=== PATIENT | male | born 1955 | race Caucasian/White ===

== ENCOUNTER 2017-02-23 14:47 | Inpatient (IN) | payer OTHER ==
[2017-02-23] MEDS ORDERED: RX INFO: IV CONTRAST WAS GIVEN 1 EACH MISC MISCELLANE PRN (15:05)
[2017-02-23] MEDS ORDERED: DEXTROSE 50%-WATER 50 ML SYRINGE IVP STA ×2 (15:05→16:04)
[2017-02-23] MEDS ORDERED: DEXTROSE 5%-0.45% NACL 1,000 ML IV ONE (15:06)
[2017-02-23 15:08] LABS: Glucose,Whole Blood 25 mg/dL (75-99)
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
[2017-02-23 15:56] LABS: Basophils % (A) 0 %; CH 33.7; CHCM 32.4; Eosinophils # (A) 0.3 k/uL (0-0.7); Eosinophils % (A) 3 %; HCT 38.6 % (39.0-53.0); HDW 1.98; HGB 12.6 gm/dL (13.0-17.5); Luc # (Auto) 0.21; Luc % (Auto) 2; Lymphocytes # (A) 1.2 k/uL (1.0-4.8); Lymphocytes % (A) 11 %; MCH 34.2 pg (25.0-35.0); MCHC 32.7 g/dL (31.0-37.0); MCV 104.5 fL (80.0-100.0); Macrocytosis Slight; Mean Platelet Volume 7.2; Monocytes # (A) 1.2 k/uL (0-1.0); Monocytes % (A) 11 %; Neutrophils % (A) 74 %; RBC 3.69 m/uL (4.30-5.90); RDW 12.7 % (11.5-15.5); WBC 10.9 k/uL (3.8-10.6); WBC (Perox) 11.12
[2017-02-23 16:06] LABS: Glucose,Whole Blood 33 mg/dL (75-99)
[2017-02-23 16:07] LABS: ALT 40 U/L (21-72); AST 83 U/L (17-59); Alcohol 33 mg/dL; Alkaline Phosphatase 44 U/L (38-126); Anion Gap 12 mmol/L; Blood Urea Nitrogen 16 mg/dL (9-20); Calcium 9.3 mg/dL (8.4-10.2); Carbon Dioxide 23 mmol/L (22-30); Chloride 109 mmol/L (98-107); Glucose 80 mg/dL (74-99); Non-African American GFR(MDRD) >60 (>60 ml/min/1.73 sqM); Potassium 4.1 mmol/L (3.5-5.1); Sodium 144 mmol/L (137-145); Total Bilirubin 0.4 mg/dL (0.2-1.3); Total Protein 7.1 g/dL (6.3-8.2)
[2017-02-23 16:08] LABS: INR 1.2 (<1.1)
--- NOTE | 2017-02-23 16:08 | XR ---
EXAMINATION TYPE: XR pelvis AP view DATE OF EXAM ORDERED: 02/23/2017 HISTORY: Pain. COMPARISON: None. FINDINGS: Osseous structures about the pelvis are normal. No fracture is seen. The hips are maintain ed. There are degenerative changes in the lower lumbar spine. IMPRESSION: NO ACUTE OSSEOUS LESION.
--- NOTE | 2017-02-23 16:09 | XR ---
EXAMINATION TYPE: XR chest 1V DATE OF EXAM: 02/23/2017 HISTORY: Pain. REFERENCE: NONE. FINDINGS: The lungs are clear. Pleural space are clear. Heart size is upper limits of normal. IMPRESSION: NO ACUTE INTRATHORACIC ABNORMALITY.
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
[2017-02-23 17:15] LABS: Glucose,Whole Blood 72 mg/dL (75-99)
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
[2017-02-23] MEDS ORDERED: ONDANSETRON 4 MG/2 ML VIAL IVP PRN (17:32)
[2017-02-23] MEDS ORDERED: HYDROcodone/APAP 5-325MG 1 EACH TAB PO PRN (17:32)
[2017-02-23] MEDS ORDERED: NALOXONE 0.4 MG/ML 1 ML VIAL IV PRN (17:32)
[2017-02-23 19:54] LABS: Glucose,Whole Blood 115 mg/dL (75-99)
[2017-02-23 20:13] LABS: Glucose,Whole Blood 173 mg/dL (75-99)
[2017-02-23 20:31] VITALS: BMI 21.7
[2017-02-23] MEDS ORDERED: LORazepam 2 MG/ML SYRINGE IV PRN ×3 (21:29)
[2017-02-23] MEDS ORDERED: THIAMINE 100 MG/ML 2 ML VIAL IM STA (21:29)
[2017-02-23] MEDS: INSULIN LISPRO (humaLOG) 300 UNIT/3 ML VIAL SQ SCH (22:11)
[2017-02-23 22:18] LABS: Glucose,Whole Blood 315 mg/dL (75-99)
[2017-02-23] MEDS: ACETAMINOPHEN TAB 325 MG TAB PO PRN (22:22)
[2017-02-23 23:08] LABS: Hemoglobin A1C 8.1 % (4.2-6.1)
[2017-02-24 01:40] LABS: Glucose,Whole Blood 181 mg/dL (75-99)
[2017-02-24] MEDS: ACETAMINOPHEN TAB 325 MG TAB PO PRN ×3 (04:26→20:07)
[2017-02-24 08:13] LABS: Glucose,Whole Blood 182 mg/dL (75-99)
[2017-02-24] MEDS: INSULIN LISPRO (humaLOG) 300 UNIT/3 ML VIAL SQ SCH ×3 (08:22→18:30)
[2017-02-24 10:47] LABS: Glucose,Whole Blood 399 mg/dL (75-99)
[2017-02-24 11:30] LABS: Glucose,Whole Blood 390 mg/dL (75-99)
[2017-02-24] MEDS ORDERED: INSULIN GLARGINE 100 UNIT/ML 10 ML VIAL SQ ONE (11:46)
[2017-02-24] MEDS: THIAMINE 100 MG TAB PO SCH ×2 (11:49→16:40)
[2017-02-24 12:09] LABS: Glucose,Whole Blood 413 mg/dL (75-99)
[2017-02-24] MEDS ORDERED: INSULIN LISPRO (humaLOG) 300 UNIT/3 ML VIAL SQ ONE (12:15)
[2017-02-24] MEDS: VALSARTAN 80 MG TAB PO SCH (16:40)
[2017-02-24 17:49] LABS: Glucose,Whole Blood 337 mg/dL (75-99)
[2017-02-24] MEDS ORDERED: INSULIN REGULAR 100 UNIT/ML VIAL IV ONE (18:15)
[2017-02-24 18:44] LABS: Glucose,Whole Blood 320 mg/dL (75-99)
[2017-02-24 19:30] LABS: Glucose,Whole Blood 310 mg/dL (75-99)
[2017-02-24 19:56] LABS: Glucose,Whole Blood 228 mg/dL (75-99)
[2017-02-24] MEDS ORDERED: LATANOPROST 0.005% OPHTH DROPS 2.5 ML BTL BOTH EYES SCH (21:00)
[2017-02-24 21:55] LABS: Glucose,Whole Blood 112 mg/dL (75-99)
[2017-02-25 00:14] LABS: Glucose,Whole Blood 117 mg/dL (75-99)
[2017-02-25 02:05] LABS: Glucose,Whole Blood 100 mg/dL (75-99)
[2017-02-25] MEDS: ACETAMINOPHEN TAB 325 MG TAB PO PRN ×2 (04:24→11:14)
[2017-02-25 06:02] LABS: Glucose,Whole Blood 110 mg/dL (75-99)
[2017-02-25] MEDS: INSULIN LISPRO (humaLOG) 300 UNIT/3 ML VIAL SQ SCH ×2 (06:26→12:30)
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
[2017-02-25] MEDS: VALSARTAN 80 MG TAB PO SCH (08:57)
[2017-02-25] MEDS ORDERED: INSULIN GLARGINE 100 UNIT/ML 10 ML VIAL SQ SCH (09:00)
[2017-02-25] MEDS: THIAMINE 100 MG TAB PO SCH (11:14)
[2017-02-25 11:55] LABS: Glucose,Whole Blood 334 mg/dL (75-99)
[2017-02-25] MEDS ORDERED: KETOROLAC 30 MG/ML 1 ML VIAL IVP STA (14:32)
[2017-02-25 15:31] VITALS: RESP 18
[2017-02-25 15:33] VITALS: BP 149/87; PULSE 92; TEMP 98.3
[2017-02-25 16:51] LABS: Glucose,Whole Blood 217 mg/dL (75-99)
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
== END 2017-02-25 16:51 | disposition home or self-care (01) | DRG 639 ==
LOC: EC 14:47 → 6ICU 18:54 → 6SEL 02-24 19:52
PROVIDERS: ADMIT Internal Medicine; ATTEND Internal Medicine
DX: E11.649 Type 2 diabetes mellitus with hypoglycemia without coma (principal); I10 Essential (primary) hypertension; E11.65 Type 2 diabetes mellitus with hyperglycemia; F10.129 Alcohol abuse with intoxication, unspecified; F17.200 Nicotine dependence, unspecified, uncomplicated; S61.213A Laceration without foreign body of left middle finger without damage to nail, initial encounter; M54.2 Cervicalgia; Y90.1 Blood alcohol level of 20-39 mg/100 ml; Z79.4 Long term (current) use of insulin; Z79.84 Long term (current) use of oral hypoglycemic drugs; Z79.899 Other long term (current) drug therapy; V49.9XXA Car occupant (driver) (passenger) injured in unspecified traffic accident, initial encounter
CPT/HCPCS: 36415; 70450; 71010; 71260; 72125; 72170; 74177; 80053; 80306; 80320; 82607; 83036; 84484; 85025; 85610; 85730; 93005; 96360; 96361; 99285

== ENCOUNTER → 2018-03-16 | Outpatient (CLI) | payer BC, OTHER ==
--- NOTE | 2018-03-16 13:53 | XR ---
EXAMINATION TYPE: XR cervical spine limited DATE OF EXAM: 03/16/2018 CLINICAL HISTORY: pain TECHNIQUE: 3 views of the cervical spine are submitted. COMPARISON: None. FINDINGS: There is satisfactory in alignment without evidence of acute fracture or dislocation. The pre-vertebral soft tissue appears within normal limits. Moderate degenerative disc space narrowing a nd spondylosis at C5-6. Mild degenerative narrowing at C6-7. The C1-C2 articulation is unremarkable o n the open mouth view. IMPRESSION: No acute fracture or dislocation is seen in the cervical spine.
== END | disposition home or self-care (01) ==
LOC: RADXRMAIN 12:58
PROVIDERS: ATTEND Family Medicine
DX: M50.30 Other cervical disc degeneration, unspecified cervical region (principal)
CPT/HCPCS: 72040

== ENCOUNTER 2020-07-03 12:54 | Inpatient (IN) | payer OTHER ==
[2020-07-03] MEDS ORDERED: VANCOMYCIN IV PER PHARMACY 1 EACH MISC MISCELLANE PRN (13:17)
[2020-07-03] MEDS ORDERED: PIPERACILLIN-TAZOBACTAM 3.375 GM in SODIUM CHLORIDE 0.9% 100 ML IVPB STA (13:17)
[2020-07-03] MEDS ORDERED: ACETAMINOPHEN TAB 325 MG TAB PO STA (13:18)
[2020-07-03] MEDS ORDERED: VANCOMYCIN 1,250 MG in SODIUM CHLORIDE 0.9% 250 ML IVPB ONE (13:30)
--- NOTE | 2020-07-03 13:45 | XR ---
EXAMINATION TYPE: XR ankle limited RT DATE OF EXAM: 07/03/2020 COMPARISON: NONE HISTORY: Pain TECHNIQUE: Frontal, lateral images of the right ankle are obtained. COMPARISON: None. FINDINGS: There is no acute fracture/dislocation evident. The joint spaces appear within normal anaya its. Soft tissue swelling noted about the ankle greatest laterally. IMPRESSION: There is no acute fracture or dislocation seen.
--- NOTE | 2020-07-03 13:46 | XR ---
EXAMINATION TYPE: XR foot complete RT DATE OF EXAM: 07/03/2020 CLINICAL HISTORY: pain TECHNIQUE: Frontal, lateral and oblique images of the right foot are obtained. COMPARISON: None. FINDINGS: There is no acute fracture/dislocation evident. The joint spaces appear within normal anaya its. Soft tissue swelling about the first metatarsal phalangeal joint with internal air. Air producin g infection is not excluded. Vascular calcifications are noted as well. No evidence for bony destruct neisha process at this time. IMPRESSION: Soft tissue swelling about the first metatarsal phalangeal joint with internal air. Air producing inf ection is not excluded. ICD 10 NO FRACTURE, INITIAL EVALUATION
--- NOTE | 2020-07-03 14:01 | ED ---
General Adult HPI - General Chief complaint: Extremity Injury, Lower Stated complaint: Sent by PCP Time Seen by Provider: 07/03/20 13:03 Source: patient, RN notes reviewed Mode of arrival: ambulatory Limitations: no limitations - History of Present Illness Initial comments: 65-year-old male presents emergency Department chief complaint of right foot inf ection. Patient states that this started in the last 1-2 days. Patient states he injured his ankle when she fell he twisted it. Patient states that he woke up and noticed that there is an open sore and blistering to his foot. Patient does have a history infections. Patient has a known diabetic. Patient states that he was evaluated by Dr. Sesay podiatry today who sent him here for further evaluation for IV antibiotics. Patient denies knowing that he had a fever though he is febrile. Patient denies any abdominal pain no proximal leg pain. - Related Data Home Medications Medication Instructions Recorded Confirmed INSULIN LISPRO (humaLOG) [humaLOG] 8 units SQ AC-TID 02/23/17 07/03/20 Latanoprost [Xalatan 0.005%] 1 drop BOTH EYES HS 02/23/17 07/03/20 Valsartan [Diovan] 80 mg PO DAILY 02/23/17 07/03/20 Acetaminophen Tab [Tylenol Tab] 1,000 mg PO Q6HR PRN 07/03/20 07/03/20 Famotidine/Ca Carb/Mag Hydrox 1 tab PO DAILY 07/03/20 07/03/20 [Pepcid Complete Tablet Chew] Gabapentin [Neurontin] 100 mg PO BID 07/03/20 07/03/20 Insulin Glargine,Hum.rec.anlog 12 unit SQ DAILY 07/03/20 07/03/20 [Basaglar Kwikpen U-100] metFORMIN HCL [Glucophage] 500 mg PO BID 07/03/20 07/03/20 Allergies Allergy/AdvReac Type Severity Reaction Status Date / Time No Known Allergies Allergy Verified 07/03/20 14:01 Review of Systems ROS Statement: Those systems with pertinent positive or pertinent negative responses have been documented in the HPI. ROS Other: All systems not noted in ROS Statement are negative. Past Medical History Past Medical History: Diabetes Mellitus, Hypertension History of Any Multi-Drug Resistant Organisms: MRSA Date of last positivie culture/infection: 05/03/20 MDRO Source:: Right 2nd finger Past Surgical History: No Surgical Hx Reported Past Psychological History: No Psychological Hx Reported Smoking Status: Current every day smoker Past Alcohol Use History: Daily Past Drug Use History: None Reported - Past Family History Mother Additional Family Medical History / Comment(s): Parkinsons Disease Father Family Medical History: Cancer Additional Family Medical History / Comment(s): Lung Cancer General Exam Limitations: no limitations General appearance: alert, in no apparent distress Head exam: Present: atraumatic, normocephalic, normal inspection Eye exam: Present: normal appearance, PERRL, EOMI. Absent: scleral icterus, conjunctival injection, periorbital swelling ENT exam: Present: normal exam, normal oropharynx, mucous membranes moist Respiratory exam: Present: normal lung sounds bilaterally. Absent: respiratory distress, wheezes, rales, rhonchi, stridor Cardiovascular Exam: Present: normal rhythm, tachycardia, normal heart sounds. Absent: systolic murmur, diastolic murmur, rubs, gallop, clicks Extremities exam: Present: other (Right foot there is extensive erythema just proximal to the ankle, there is an open wound on the ball his foot proximal to the first and second digit with blistering noted moderate tenderness) Skin exam: Present: warm, dry, intact, normal color. Absent: rash Course Vital Signs 07/03/20 07/03/20 12:59 14:45 Temperature 99.8 F H 98.2 F Pulse Rate 114 H 82 Respiratory 18 18 Rate Blood Pressure 91/61 98/61 O2 Sat by Pulse 99 100 Oximetry Medical Decision Making - Medical Decision Making 65-year-old male presented for right foot infection. Patient has obvious open diabetic ulcer, x-ray shows ulcer with some air or gas. Patient does have moderate leukocytosis, lactic acidosis. Patient was started on broad-spectrum antibiotics. Patient will be admitted for further evaluation. - Lab Data Result diagrams: 07/03/20 13:45 Lab Results 07/03/20 07/03/20 07/03/20 Range/Units 13:45 13:45 13:45 WBC 23.1 H (3.8-10.6) k/uL RBC 2.97 L (4.30-5.90) m/uL Hgb 10.3 L (13.0-17.5) gm/dL Hct 32.9 L (39.0-53.0) % MCV 110.7 H (80.0-100.0) fL MCH 34.8 (25.0-35.0) pg MCHC 31.4 (31.0-37.0) g/dL RDW 12.6 (11.5-15.5) % Plt Count 298 (150-450) k/uL Neutrophils % 89 % Lymphocytes % 2 % Monocytes % 6 % Eosinophils % 1 % Basophils % 0 % Neutrophils # 20.7 H (1.3-7.7) k/uL Lymphocytes # 0.4 L (1.0-4.8) k/uL Monocytes # 1.5 H (0-1.0) k/uL Eosinophils # 0.3 (0-0.7) k/uL Basophils # 0.0 (0-0.2) k/uL Manual Slide Review Performed Toxic Vacuolation Present Macrocytosis Marked A PT 9.5 (9.0-12.0) sec INR 0.9 (<1.2) APTT 34.7 H (22.0-30.0) sec Plasma Lactic Acid David 2.3 H* (0.7-2.0) mmol/L Disposition Clinical Impression: Diabetic ulcer of right foot, Lactic acidosis, Leukocytosis Disposition: ADMITTED IP TO THIS [facility] Condition: Serious
[2020-07-03 14:30] LABS: Basophils % (A) 0 %; Eosinophils # (A) 0.3 k/uL (0-0.7); Eosinophils % (A) 1 %; HCT 32.9 % (39.0-53.0); HGB 10.3 gm/dL (13.0-17.5); Lymphocytes # (A) 0.4 k/uL (1.0-4.8); Lymphocytes % (A) 2 %; MCH 34.8 pg (25.0-35.0); MCHC 31.4 g/dL (31.0-37.0); MCV 110.7 fL (80.0-100.0); Macrocytosis Marked; Mean Platelet Volume 7.3; Monocytes # (A) 1.5 k/uL (0-1.0); Monocytes % (A) 6 %; Neutrophils # (A) 20.7 k/uL (1.3-7.7); Neutrophils % (A) 89 %; Platelet Count 298 k/uL (150-450); RBC 2.97 m/uL (4.30-5.90); RDW 12.6 % (11.5-15.5); WBC 23.1 k/uL (3.8-10.6)
[2020-07-03 14:33] LABS: INR 0.9 (<1.2); Partial Thromboplastin Time 34.7 sec (22.0-30.0); Prothrombin Time 9.5 sec (9.0-12.0)
[2020-07-03 14:35] LABS: Albumin 3.4 g/dL (3.5-5.0); Calcium 8.5 mg/dL (8.4-10.2); Total Bilirubin 0.9 mg/dL (0.2-1.3); Total Protein 6.3 g/dL (6.3-8.2)
[2020-07-03] MEDS ORDERED: NALOXONE 0.4 MG/ML 1 ML VIAL IV PRN (14:51)
[2020-07-03] MEDS ORDERED: ONDANSETRON 4 MG/2 ML VIAL IVP PRN (14:51)
[2020-07-03 14:55] LABS: Toxic Vacuolation Present
[2020-07-03] MEDS ORDERED: SODIUM CHLORIDE 0.9% 1,000 ML IV ONE (15:25)
[2020-07-03] MEDS ORDERED: CLINDAMYCIN 600 MG in DEXTROSE 5% IN WATER 50 ML IVPB STA ×2 (15:25)
[2020-07-03 15:32] LABS: Erythrocyte Sedimentation Rate 97 mm/hr (0-15)
[2020-07-03 16:04] LABS: C Reactive Protein 565.4 mg/L (<10.0)
--- NOTE | 2020-07-03 16:27 | CT ---
EXAMINATION TYPE: CT lower extremity RT wo con DATE OF EXAM: 07/03/2020 COMPARISON: 07/03/2020 right foot x-ray HISTORY: Redness and swelling to right foot traveling up mid calf. CT DLP: 395 mGycm Automated exposure control for dose reduction was used. FINDINGS: There is subcutaneous air adjacent to the distal medial first metatarsal. This extends to adjacent to the sesamoids. Infection should be considered. No suspicious cortical erosion to suggest osteomyelit is is evident. Three-D reconstructed images are reviewed on the computer. IMPRESSION: 1. FINDINGS SUGGESTIVE FOR SOFT TISSUE INFECTION WITH GAS IN THE SUBCUTANEOUS TISSUES ADJACENT TO THE MEDIAL FIRST METATARSAL. 2. NO SUSPICIOUS OSSEOUS CHANGES TO SUGGEST ACUTE OSTEOMYELITIS.
[2020-07-03] MEDS: SODIUM CHLORIDE 0.9% 1,000 ML IV SCH ×2 (18:31→23:05)
[2020-07-03] MEDS ORDERED: LORazepam 2 MG/ML INJ IV PRN ×3 (18:48)
[2020-07-03] MEDS ORDERED: cloNIDine HCL 0.1 MG TAB PO PRN (18:48)
[2020-07-03] MEDS ORDERED: THIAMINE 100 MG/ML 2 ML VIAL IM STA (18:48)
[2020-07-03] MEDS ORDERED: TEMAZEPAM 15 MG CAP PO PRN (18:50)
[2020-07-03] MEDS ORDERED: HYDROmorphone 0.5 MG/0.5 ML SYRINGE IVP PRN (18:50)
[2020-07-03] MEDS ORDERED: HYDROcodone/APAP 5-325MG 1 EACH TAB PO PRN (18:50)
[2020-07-03] MEDS ORDERED: INSULIN REGULAR 100 UNIT/ML VIAL IV ONE (18:53)
[2020-07-03 18:57] LABS: Glucose,Whole Blood >600 mg/dL (75-99)
[2020-07-03] MEDS ORDERED: INSULIN REGULAR BOLUS (FROM DRIP BAG) IV ONE ×2 (19:05→19:10)
[2020-07-03] MEDS ORDERED: INSULIN REGULAR 100 UNIT in SODIUM CHLORIDE 0.9% 100 ML IV SCH (19:15)
--- NOTE | 2020-07-03 20:00 | HP ---
HISTORY AND PHYSICAL CHIEF COMPLAINT: Right foot infection. HISTORY OF PRESENT ILLNESS: This 65-year-old gentleman with a past medical history of multiple medical problems, including diabetes mellitus, hypertension, history of MRSA, being followed by Dr. Sammy Garrido in the outpatient setting, was noted to have right foot infection. The patient apparently had blood and subsequently patient was using a heating pad. The patient has a history of EtOH also, at least drinking about 3 drinks per day. The patient said that he injured the ankle and fell and twisted it. There is no history of any fever, rigor or chills. No history of headache, loss of consciousness, seizures. The patient was admitted for further evaluation and treatment. The initial labs showed WBC 23.1, indicating a certain amount of sepsis. ESR was 97. Lactic acid was 23. Creatinine was elevated at 1.7, indicating acute renal failure, possibly prerenal. A CT scan of the lower extremity was also done in the ER which showed soft tissue infection with gas in the subcutaneous tissue adjacent to the medial first metatarsal. No suspicious osseous changes were noted to suggest acute osteomyelitis. The patient was admitted for further evaluation and treatment. The foot x-rays showed no fractures. There is no history of any fever, rigor or chills. No history of headache, loss of consciousness, seizures. PAST MEDICAL HISTORY: History of diabetes mellitus, hypertension, history of MRSA. MEDICATIONS: 1. Glucophage 500 mg p.o. b.i.d. 2. Diovan 80 mg p.o. daily. 3. Xalatan 1 drop at bedtime. 4. Basaglar. 5. Humalog. 6. Neurontin. 7. Pepcid. 8. Tylenol. Doses are reviewed. ALLERGIES: NONE. FAMILY HISTORY: History of Parkinson's and cancer in the family. SOCIAL HISTORY: History of smoking. History of alcohol, as mentioned earlier. REVIEW OF SYSTEMS: ENT: No diminished hearing. No diminished vision. CARDIOVASCULAR SYSTEM: No angina, palpitations. RESPIRATORY SYSTEM: No cough, hemoptysis. GI: No nausea, vomiting, diarrhea. : No dysuria or retention. NERVOUS SYSTEM: No numbness, weakness. ALLERGY/IMMUNOLOGY: No asthma, hayfever. MUSCULOSKELETAL: As mentioned earlier. HEMATOLOGY/ONCOLOGY: No history of anemia. ENDOCRINE: Diabetes. CONSTITUTIONAL: As mentioned earlier. DERMATOLOGY: Negative. RHEUMATOLOGY: Negative. PSYCHIATRY: As mentioned earlier. NEUROLOGY: Peripheral neuropathy. PHYSICAL EXAMINATION: Patient alert and oriented x3. Pulse is 98, blood pressure 120/76, respiration 18, temperature 98.1, T-max 99.8, pulse ox 100% on room air. HEENT: Conjunctivae normal. Oral mucosa moist. NECK: No jugular venous distention. No carotid bruit. No lymph node enlargement. CARDIOVASCULAR SYSTEM: S1, S2 muffled. No S3. No S4. RESPIRATORY SYSTEM: Breath sounds diminished at the bases. No rhonchi. No crackles. ABDOMEN: Soft, non-tender. No mass palpable. LEGS: Significant wasting of the legs also present. Significant infection, blebs, severe tenderness in the right foot present. Otherwise, some erythema is also present. Pulses are diminished and sensation is also diminished in both legs. NERVOUS SYSTEM: Higher functions as mentioned earlier. Moves all 4 limbs. No focal motor or sensory deficit. LYMPHATICS: No lymph node palpable in neck, axillae or groin. JOINTS: No active deforming arthropathy. LABS: WBC 23.1, hemoglobin 10.3. Other labs are reviewed. Sodium 129. ASSESSMENT: 1. Acute right diabetic foot infection of the bleb and subcutaneous air with possible gangrene, possible fasciitis with sepsis, present on admission. 2. Increased white count. 3. Anemia, macrocytic. 4. History of ETOH. 5. Hyponatremia. 6. Increased creatinine with acute renal failure with acute tubular necrosis. 7. Diabetes mellitus, type 2, uncontrolled, with hyperglycemia. 8. Elevated plasma lactic acid with sepsis. 9. Increased C-reactive protein. 10.FULL CODE. RECOMMENDATIONS AND DISCUSSION: In this 65-year-old gentleman who presented with multiple complex medical issues, we will monitor the patient closely, continue the current medications, continue symptomatic treatment. Will initiate broad-spectrum IV antibiotics. Obtain infectious disease as well as vascular surgery consultations. Resume the home medications. I would also recommend insulin drip; the sugars are not well controlled with the current levels of management. Resume the home medications. [facility] protocol for alcohol withdrawal. Prognosis guarded because of multiple complex medical issues. Further recommendations to follow. A copy of this dictation is being forwarded to Dr. Sammy Garrido, who is the primary physician. MMODL / IJN: [id number] /
[2020-07-03] MEDS: cloNIDine HCL 0.1 MG TAB PO SCH ×2 (20:19→22:59)
[2020-07-03] MEDS: THIAMINE 100 MG TAB PO SCH (20:19)
[2020-07-03 20:38] LABS: Glucose,Whole Blood 320 mg/dL (75-99)
[2020-07-03] MEDS ORDERED: INSULIN ASPART (NovoLOG) 100 UNIT/ML VIAL SQ SCH ×2 (21:00)
[2020-07-03 21:09] LABS: Glucose,Whole Blood 225 mg/dL (75-99)
[2020-07-03 22:53] LABS: Glucose,Whole Blood 51 mg/dL (75-99)
[2020-07-03] MEDS: HEPARIN SODIUM,PORCINE 5,000 UNIT/ML 1 ML VIAL SQ SCH (22:58)
[2020-07-03] MEDS: GABAPENTIN 100 MG CAP PO SCH (22:58)
[2020-07-03] MEDS: PIPERACILLIN-TAZOBACTAM 3.375 GM in SODIUM CHLORIDE 0.9% 100 ML IVPB SCH (22:58)
[2020-07-03] MEDS: LATANOPROST 0.005% OPHTH DROPS 2.5 ML BTL BOTH EYES SCH (22:59)
[2020-07-03 23:18] LABS: Glucose,Whole Blood 89 mg/dL (75-99)
[2020-07-04 00:07] LABS: Glucose,Whole Blood 142 mg/dL (75-99)
[2020-07-04] MEDS: ACETAMINOPHEN TAB 325 MG TAB PO PRN ×3 (01:05→16:15)
[2020-07-04] MEDS: CLINDAMYCIN 600 MG in DEXTROSE 5% IN WATER 50 ML IVPB SCH ×6 (01:12→16:28)
[2020-07-04 01:13] LABS: Glucose,Whole Blood 164 mg/dL (75-99)
[2020-07-04 02:30] LABS: Glucose,Whole Blood 112 mg/dL (75-99)
[2020-07-04 03:19] LABS: Glucose,Whole Blood 83 mg/dL (75-99)
[2020-07-04 04:54] LABS: Glucose,Whole Blood 93 mg/dL (75-99)
[2020-07-04] MEDS: PIPERACILLIN-TAZOBACTAM 3.375 GM in SODIUM CHLORIDE 0.9% 100 ML IVPB SCH ×2 (06:03→16:13)
[2020-07-04 06:09] LABS: Basophils % (A) 0 %; Eosinophils # (A) 0.1 k/uL (0-0.7); Eosinophils % (A) 0 %; HCT 28.2 % (39.0-53.0); HGB 8.9 gm/dL (13.0-17.5); Lymphocytes # (A) 0.9 k/uL (1.0-4.8); Lymphocytes % (A) 5 %; MCH 34.7 pg (25.0-35.0); MCHC 31.7 g/dL (31.0-37.0); MCV 109.5 fL (80.0-100.0); Macrocytosis Moderate; Mean Platelet Volume 8.1; Monocytes % (A) 6 %; Neutrophils # (A) 15.4 k/uL (1.3-7.7); Neutrophils % (A) 87 %; Platelet Count 248 k/uL (150-450); RBC 2.57 m/uL (4.30-5.90); RDW 12.2 % (11.5-15.5); WBC 17.8 k/uL (3.8-10.6)
[2020-07-04] MEDS ORDERED: INSULIN DETEMIR (LEVEMIR) 100 UNIT/ML SYR SQ SCH (07:00)
[2020-07-04] MEDS ORDERED: INSULIN ASPART (NovoLOG) 100 UNIT/ML VIAL SQ SCH (07:30)
[2020-07-04 07:38] LABS: Glucose,Whole Blood 111 mg/dL (75-99)
[2020-07-04] MEDS: INSULIN ASPART (NovoLOG) 100 UNIT/ML VIAL SQ SCH ×4 (08:16→20:58)
[2020-07-04] MEDS: SODIUM CHLORIDE 0.9% 1,000 ML IV SCH ×3 (08:47→21:09)
[2020-07-04] MEDS: PANTOPRAZOLE 40 MG TABLET PO SCH (08:48)
[2020-07-04] MEDS: THIAMINE 100 MG TAB PO SCH ×2 (08:48→16:15)
[2020-07-04] MEDS: FAMOTIDINE 20 MG TAB PO SCH (08:49)
[2020-07-04] MEDS: NICOTINE 14MG/24HR PATCH TRANSDERM SCH (08:49)
[2020-07-04] MEDS: GABAPENTIN 100 MG CAP PO SCH ×2 (08:53→20:58)
[2020-07-04] MEDS: cloNIDine HCL 0.1 MG TAB PO SCH ×3 (08:53→20:40)
[2020-07-04] MEDS: VALSARTAN 80 MG TAB PO SCH (08:53)
[2020-07-04] MEDS: HEPARIN SODIUM,PORCINE 5,000 UNIT/ML 1 ML VIAL SQ SCH ×2 (09:13→20:58)
[2020-07-04 09:56] LABS: African American GFR (CKD) 52.4 (60.0-200.0); Anion Gap 8.6 mmol/L (4.00-12.00); BUN/Creat Ratio 17.5 Ratio (12.00-20.00); Calcium 7.7 mg/dL (8.7-10.3); Carbon Dioxide 25.4 mmol/L (21.6-31.8); Non-African American GFR(CKD) 45.2 (60.0-200.0); Potassium 4.9 mmol/L (3.5-5.5)
[2020-07-04 11:30] LABS: Glucose,Whole Blood 389 mg/dL (75-99)
[2020-07-04] MEDS: MULTIVITAMINS, THERA 1 EACH TAB PO SCH (11:44)
--- NOTE | 2020-07-04 11:47 | P.CON ---
Consult Note - . Consult date: 07/04/20 Assessment/Plan:: Wound Center consult: Date of consult: 07/04/2020 Reason for consult: Diabetic ulcer medial right foot. The patient has had a sore on his right foot for an undisclosed period of time. He is diabetic. He has numerous other comorbidities as outlined in Dr. Macario's H&P. Physical examination: Patient has a significantly ruborous area at the first MP joint and medially. The skin is very thin. On probing it from a hole on the plantar aspect the actual opening goes down almost to the bone. I do not palpate the bone but soft tissue right against the bone. The patient does have palpable dorsalis pedis pulses. The patient does have a significant diabetic infection which is at risk to include the first MP joint on the right. Dr. Marshall has ordered a 3 phase bone scan. Once obtaining these results she plans on a debridement of the area to open up the deeper pocket. Further determinations will be madein regards to specifics of wound careonce the wound is opened. We will then be able to see a little bit more of whether or not he will require bone removal or toe amputation as directed by Dr. Marshall. Following this we will follow him in wound care. We appreciate Used to participate with you in his care.
[2020-07-04] MEDS: VANCOMYCIN 1,250 MG in SODIUM CHLORIDE 0.9% 250 ML IVPB SCH (12:17)
--- NOTE | 2020-07-04 12:53 | P.GSCN ---
History of Present Illness Consult date: 07/04/20 History of present illness: Rudolph is a 65-year-old male into the ER for a right lower extremity wound. He states his wound has been going on for a long few days, he tripped and hurt his ankle at which time he began to notice this Lana at the medial portion of his right foot. He states that he's had a wound on the bottom of his foot for many months, with an area of callus. He's never had anything done with this. He denies any previous wounds. He has had intermittent fevers. He denies any chills, nausea, vomiting or issues otherwise Review of Systems 14 point review of systems performed, pertinent positives and negatives per the HPI Past Medical History Past Medical History: Diabetes Mellitus, Hypertension, Vascular Disorder History of Any Multi-Drug Resistant Organisms: MRSA Year Discovered:: 05/03/20 MDRO Source:: Right 2nd finger Past Surgical History: No Surgical Hx Reported Additional Past Surgical History / Comment(s): hammer toe repair both feet Past Anesthesia/Blood Transfusion Reactions: No Reported Reaction Past Psychological History: No Psychological Hx Reported Smoking Status: Current every day smoker Past Alcohol Use History: Daily Past Drug Use History: None Reported - Past Family History Mother Additional Family Medical History / Comment(s): Parkinsons Disease Father Family Medical History: Cancer Additional Family Medical History / Comment(s): Lung Cancer Medications and Allergies Home Medications Medication Instructions Recorded Confirmed Type INSULIN LISPRO (humaLOG) [humaLOG] 8 units SQ AC-TID 02/23/17 07/03/20 History Latanoprost [Xalatan 0.005%] 1 drop BOTH EYES HS 02/23/17 07/03/20 History Valsartan [Diovan] 80 mg PO DAILY 02/23/17 07/03/20 History Acetaminophen Tab [Tylenol Tab] 1,000 mg PO Q6HR PRN 07/03/20 07/03/20 History Famotidine/Ca Carb/Mag Hydrox 1 tab PO DAILY 07/03/20 07/03/20 History [Pepcid Complete Tablet Chew] Gabapentin [Neurontin] 100 mg PO BID 07/03/20 07/03/20 History Insulin Glargine,Hum.rec.anlog 12 unit SQ DAILY 07/03/20 07/03/20 History [Basaglar Kwikpen U-100] metFORMIN HCL [Glucophage] 500 mg PO BID 07/03/20 07/03/20 History Allergies Allergy/AdvReac Type Severity Reaction Status Date / Time No Known Allergies Allergy Verified 07/03/20 14:01 Surgical - Exam Vital Signs Temp Pulse Resp BP Pulse Ox 99.8 F H 114 H 18 91/61 99 07/03/20 12:59 07/03/20 12:59 07/03/20 12:59 07/03/20 12:59 07/03/20 12:59 Gen. is a pleasant cooperative male in no acute distress. HEENT is no rmocephalic, atraumatic, extraocular motion intact. Heart is regular at this time. Lungs no respiratory distress. Abdomen is soft, nontender nondistended. Traditional clubbing, cyanosis or edema. He has palpable radial, femoral and dorsalis pedis pulses bilaterally. On the right lower extremity there is a wound at the medial portion, initially a bullae, this was cleansed with a swab and decompressed. There was a foul odor. It was unroofed at that time which did reveal some boggy erythematous tissue. It did probe in connection with the plantar wound. It was decided he would benefit from a open incision and debridement. The area was then fully cleansed with Betadine. The tract between the plantar wound and medial head was opened with a 10 blade. Sharp excisional debridement with scalpel and scissors was performed of the chronically inflamed and infected tissues. No obvious purulent drainage. A deep culture was obtained. The wound itself on completion measured 2.4 x 0.5 x0.4. This was done down to the bone. Pressure dressing was placed along with Kerlix. The patient tolerated the procedure well. Results Imaging is reviewed, some areas of subcutaneous air likely within the bullae, no evidence of osteo-on x-ray. - Labs 07/04/20 05:50 07/04/20 05:50 Abnormal Lab Results - Last 24 Hours (Table) 07/03/20 07/03/20 07/03/20 Range/Units 13:45 13:45 13:45 WBC 23.1 H (3.8-10.6) k/uL RBC 2.97 L (4.30-5.90) m/uL Hgb 10.3 L (13.0-17.5) gm/dL Hct 32.9 L (39.0-53.0) % MCV 110.7 H (80.0-100.0) fL Neutrophils # 20.7 H (1.3-7.7) k/uL Lymphocytes # 0.4 L (1.0-4.8) k/uL Monocytes # 1.5 H (0-1.0) k/uL Macrocytosis Marked A ESR 97 H (0-15) mm/hr APTT 34.7 H (22.0-30.0) sec Sodium 129 L (137-145) mmol/L Chloride 94 L (98-107) mmol/L BUN 27 H (9-20) mg/dL Creatinine 1.72 H (0.66-1.25) mg/dL Est GFR (CKD-EPI)AfAm (60.0-200.0) Est GFR (CKD-EPI)NonAf (60.0-200.0) Glucose 489 H (74-99) mg/dL POC Glucose (mg/dL) (75-99) mg/dL Plasma Lactic Acid David (0.7-2.0) mmol/L Calcium (8.7-10.3) mg/dL C-Reactive Protein 565.4 H (<10.0) mg/L Albumin 3.4 L (3.5-5.0) g/dL 07/03/20 07/03/20 07/03/20 Range/Units 13:45 18:50 20:35 WBC (3.8-10.6) k/uL RBC (4.30-5.90) m/uL Hgb (13.0-17.5) gm/dL Hct (39.0-53.0) % MCV (80.0-100.0) fL Neutrophils # (1.3-7.7) k/uL Lymphocytes # (1.0-4.8) k/uL Monocytes # (0-1.0) k/uL Macrocytosis ESR (0-15) mm/hr APTT (22.0-30.0) sec Sodium (137-145) mmol/L Chloride (98-107) mmol/L BUN (9-20) mg/dL Creatinine (0.66-1.25) mg/dL Est GFR (CKD-EPI)AfAm (60.0-200.0) Est GFR (CKD-EPI)NonAf (60.0-200.0) Glucose (74-99) mg/dL POC Glucose (mg/dL) >600 H 320 H (75-99) mg/dL Plasma Lactic Acid David 2.3 H* (0.7-2.0) mmol/L Calcium (8.7-10.3) mg/dL C-Reactive Protein (<10.0) mg/L Albumin (3.5-5.0) g/dL 07/03/20 07/03/20 07/03/20 Range/Units 21:03 22:48 23:55 WBC (3.8-10.6) k/uL RBC (4.30-5.90) m/uL Hgb (13.0-17.5) gm/dL Hct (39.0-53.0) % MCV (80.0-100.0) fL Neutrophils # (1.3-7.7) k/uL Lymphocytes # (1.0-4.8) k/uL Monocytes # (0-1.0) k/uL Macrocytosis ESR (0-15) mm/hr APTT (22.0-30.0) sec Sodium (137-145) mmol/L Chloride (98-107) mmol/L BUN (9-20) mg/dL Creatinine (0.66-1.25) mg/dL Est GFR (CKD-EPI)AfAm (60.0-200.0) Est GFR (CKD-EPI)NonAf (60.0-200.0) Glucose (74-99) mg/dL POC Glucose (mg/dL) 225 H 51 L 142 H (75-99) mg/dL Plasma Lactic Acid David (0.7-2.0) mmol/L Calcium (8.7-10.3) mg/dL C-Reactive Protein (<10.0) mg/L Albumin (3.5-5.0) g/dL 07/04/20 07/04/20 07/04/20 Range/Units 01:09 02:28 05:50 WBC 17.8 H (3.8-10.6) k/uL RBC 2.57 L (4.30-5.90) m/uL Hgb 8.9 L (13.0-17.5) gm/dL Hct 28.2 L (39.0-53.0) % MCV 109.5 H (80.0-100.0) fL Neutrophils # 15.4 H (1.3-7.7) k/uL Lymphocytes # 0.9 L (1.0-4.8) k/uL Monocytes # (0-1.0) k/uL Macrocytosis ESR (0-15) mm/hr APTT (22.0-30.0) sec Sodium (137-145) mmol/L Chloride (98-107) mmol/L BUN (9-20) mg/dL Creatinine (0.66-1.25) mg/dL Est GFR (CKD-EPI)AfAm (60.0-200.0) Est GFR (CKD-EPI)NonAf (60.0-200.0) Glucose (74-99) mg/dL POC Glucose (mg/dL) 164 H 112 H (75-99) mg/dL Plasma Lactic Acid David (0.7-2.0) mmol/L Calcium (8.7-10.3) mg/dL C-Reactive Protein (<10.0) mg/L Albumin (3.5-5.0) g/dL 07/04/20 07/04/20 07/04/20 Range/Units 05:50 07:37 11:28 WBC (3.8-10.6) k/uL RBC (4.30-5.90) m/uL Hgb (13.0-17.5) gm/dL Hct (39.0-53.0) % MCV (80.0-100.0) fL Neutrophils # (1.3-7.7) k/uL Lymphocytes # (1.0-4.8) k/uL Monocytes # (0-1.0) k/uL Macrocytosis ESR (0-15) mm/hr APTT (22.0-30.0) sec Sodium (137-145) mmol/L Chloride (98-107) mmol/L BUN 28.0 H (9-20) mg/dL Creatinine 1.6 H (0.66-1.25) mg/dL Est GFR (CKD-EPI)AfAm 52.4 L (60.0-200.0) Est GFR (CKD-EPI)NonAf 45.2 L (60.0-200.0) Glucose (74-99) mg/dL POC Glucose (mg/dL) 111 H 389 H (75-99) mg/dL Plasma Lactic Acid David (0.7-2.0) mmol/L Calcium 7.7 L (8.7-10.3) mg/dL C-Reactive Protein (<10.0) mg/L Albumin (3.5-5.0) g/dL Microbiology - Last 24 Hours (Table) 07/03/20 15:42 Gram Stain - Preliminary Foot - Left Wound Culture - Preliminary Diabetes panel 07/03/20 07/04/20 Range/Units 13:45 05:50 Sodium 129 L 136 (137-145) mmol/L Potassium 5.0 4.9 (3.5-5.1) mmol/L Chloride 94 L 102 (98-107) mmol/L Carbon Dioxide 26 25.4 (22-30) mmol/L BUN 27 H 28.0 H (9-20) mg/dL Creatinine 1.72 H 1.6 H (0.66-1.25) mg/dL Glucose 489 H 103 (74-99) mg/dL Calcium 8.5 7.7 L (8.4-10.2) mg/dL AST 35 (17-59) U/L ALT 16 (4-49) U/L Alkaline Phosphatase 78 (38-126) U/L Total Protein 6.3 (6.3-8.2) g/dL Albumin 3.4 L (3.5-5.0) g/dL Calcium panel 07/03/20 07/04/20 Range/Units 13:45 05:50 Calcium 8.5 7.7 L (8.4-10.2) mg/dL Albumin 3.4 L (3.5-5.0) g/dL Pituitary panel 07/03/20 07/04/20 Range/Units 13:45 05:50 Sodium 129 L 136 (137-145) mmol/L Potassium 5.0 4.9 (3.5-5.1) mmol/L Chloride 94 L 102 (98-107) mmol/L Carbon Dioxide 26 25.4 (22-30) mmol/L BUN 27 H 28.0 H (9-20) mg/dL Creatinine 1.72 H 1.6 H (0.66-1.25) mg/dL Glucose 489 H 103 (74-99) mg/dL Calcium 8.5 7.7 L (8.4-10.2) mg/dL Adrenal panel 07/03/20 07/04/20 Range/Units 13:45 05:50 Sodium 129 L 136 (137-145) mmol/L Potassium 5.0 4.9 (3.5-5.1) mmol/L Chloride 94 L 102 (98-107) mmol/L Carbon Dioxide 26 25.4 (22-30) mmol/L BUN 27 H 28.0 H (9-20) mg/dL Creatinine 1.72 H 1.6 H (0.66-1.25) mg/dL Glucose 489 H 103 (74-99) mg/dL Calcium 8.5 7.7 L (8.4-10.2) mg/dL Total Bilirubin 0.9 (0.2-1.3) mg/dL AST 35 (17-59) U/L ALT 16 (4-49) U/L Alkaline Phosphatase 78 (38-126) U/L Total Protein 6.3 (6.3-8.2) g/dL Albumin 3.4 L (3.5-5.0) g/dL Assessment and Plan Assessment: #1 leukocytosis #2 diabetic foot infection #3 plantar ulceration of the right foot with tracking #4 alcohol abuse #5 peripheral neuropathy Plan: At this point we previously ordered a triple phase bone scan noted to evaluate for presence of osteomyelitis in that area of the foot. A deep culture was obtained. He needs to maintain antibiotic therapy. He has palpable distal pulses therefore no further revascularization would be necessary. We will discuss going forward the plan of treatment of his ulceration and possible if he does have osteomyelitis discussing a amputation. At this time though, would attempt conservative therapies with blood sugar control and antibiotic regimen. This was discussed with both wound care physician and infectious disease.
--- NOTE | 2020-07-04 14:21 | NM ---
EXAMINATION TYPE: NM bone 3 phase DATE OF EXAM: 07/04/2020 COMPARISON: CT lower extremity right 07/03/2020. HISTORY: Right foot wound Triple phase bone scintigraphy was performed following the injection of 24.3 mCi Tc 99m MDP. Immedia te images and 3.5 hours post injection images acquired. FINDINGS: There is asymmetrically increased activity of the right distal lower extremity and foot seen on flow, pool, and delayed imaging. There is diffuse involvement of the foot on delayed imaging. Findings are not likely to represent diffuse osteomyelitis with this widespread appearance, and no ev idence of osseous change on 07/03/2020 CT exam. Significant arthritic findings were also not seen on CT comparison. IMPRESSION: 1. Positive 3 phase bone scan of entire right foot and ankle. Primary differential consideration giv en to cellulitis with persistent activity on blood pool due to possible vascular disease/congestion, or poor renal function with inadequate radiotracer clearance. Complex regional pain syndrome is inclu ded in differential. 2. Consideration can be given to MRI examination of the foot to evaluate for osteomyelitis and vascu lar ultrasound evaluation of the right lower extremity.
[2020-07-04] MEDS ORDERED: VANCOMYCIN 1,250 MG in SODIUM CHLORIDE 0.9% 250 ML IVPB SCH (15:00)
[2020-07-04 15:12] LABS: Hemoglobin A1C 9.2 % (4.0-6.0)
[2020-07-04 15:42] VITALS: BMI 20.3
[2020-07-04 16:21] LABS: Glucose,Whole Blood 264 mg/dL (75-99)
[2020-07-04 20:35] LABS: Glucose,Whole Blood 394 mg/dL (75-99)
[2020-07-04] MEDS: LATANOPROST 0.005% OPHTH DROPS 2.5 ML BTL BOTH EYES SCH (21:08)
[2020-07-04 23:09] LABS: Glucose,Whole Blood 401 mg/dL (75-99)
[2020-07-04] MEDS: AMPICILLIN-SULBACTAM 3 GM in SODIUM CHLORIDE 0.9% 100 ML IVPB SCH (23:27)
[2020-07-04] MEDS: INSULIN DETEMIR (LEVEMIR) 100 UNIT/ML SYR SQ SCH (23:27)
[2020-07-05] MEDS: ACETAMINOPHEN TAB 325 MG TAB PO PRN (01:12)
[2020-07-05 01:18] LABS: Glucose,Whole Blood 349 mg/dL (75-99)
--- NOTE | 2020-07-05 02:03 | PN ---
PROGRESS NOTE DATE OF SERVICE: 07/04/2020 This 65-year-old gentleman admitted with right foot infection and bleb is being closely monitored at this time. The patient was seen by Dr. Marshall. The patient had an apparent debridement by Dr. Marshall. The patient closely monitored patient. A bone scan has been requested for evaluation of osteomyelitis. PAST MEDICAL HISTORY: Reviewed. REVIEW OF SYSTEMS: CARDIOVASCULAR SYSTEM: No angina. RESPIRATORY SYSTEM: As mentioned earlier. GI: As mentioned earlier. : No dysuria. NERVOUS SYSTEM: No numbness or weakness. CURRENT MEDICATIONS: Current medications are reviewed and include: Tylenol, [place], Unasyn, Catapres, Pepcid, Neurontin, heparin, Dilaudid, NovoLog, Ativan, Narcan, Zofran, vitamin B1, Diovan. PHYSICAL EXAMINATION: Patient is alert and oriented x3. Pulse is 87, blood pressure 90/50, respiration 18, temperature 100.1, pulse ox 99% on room air. HEENT: Conjunctivae normal. Oral mucosa moist. NECK: No jugular venous distention. No carotid bruit. No lymph node enlargement. CARDIOVASCULAR: S1, S2 muffled. RESPIRATORY: Breath sounds diminished at the bases. No rhonchi. No crackles. ABDOMEN: Soft, nontender. No mass palpable. LEGS: No edema, no swelling NERVOUS SYSTEM: No focal deficits. Right foot ulcer and diabetic foot present. Peripheral neuropathy present. LABS: WBC 17.8, hemoglobin is 8.9, and creatinine is 1.6. Glucose noted 394. ASSESSMENT: 1. Acute right diabetic foot infection with ulcer bleb with subcutaneous air with possible gangrene and fasciitis with sepsis present on admission, status post incision and drainage. 2. Rule out osteomyelitis. 3. Increased WBC. 4. Diabetes mellitus type 2, uncontrolled with hyperglycemia. 5. Anemia, macrocytic. 6. History of EtOH. 7. Hyponatremia. 8. Increased creatinine with acute renal failure with acute tubular necrosis. 9. Elevated plasma lactic acid with sepsis. 10.Increased CRP. 11.FULL CODE. RECOMMENDATIONS AND DISCUSSION: I recommend to continue current medications, continue symptomatic treatment, continue with broad-spectrum IV antibiotics. Otherwise, monitor hemoglobin, monitor labs. Infectious Disease evaluation has been sought. Patient is on IV Unasyn at this time. We will increase the dose of insulin as well. Guarded prognosis. Further recommendations to follow. MMODL / IJN: [id number] /
[2020-07-05] MEDS: VANCOMYCIN 1,250 MG in SODIUM CHLORIDE 0.9% 250 ML IVPB SCH ×2 (03:11→20:10)
[2020-07-05] MEDS: SODIUM CHLORIDE 0.9% 1,000 ML IV SCH ×3 (05:41→21:59)
[2020-07-05] MEDS: AMPICILLIN-SULBACTAM 3 GM in SODIUM CHLORIDE 0.9% 100 ML IVPB SCH ×4 (05:42→23:25)
[2020-07-05 06:43] LABS: Glucose,Whole Blood 102 mg/dL (75-99)
[2020-07-05 07:00] LABS: Basophils % (A) 0 %; Eosinophils % (A) 0 %; HCT 27.8 % (39.0-53.0); HGB 8.6 gm/dL (13.0-17.5); Lymphocytes # (A) 1.1 k/uL (1.0-4.8); Lymphocytes % (A) 6 %; MCH 34.4 pg (25.0-35.0); MCHC 31.1 g/dL (31.0-37.0); MCV 110.5 fL (80.0-100.0); Macrocytosis Marked; Mean Platelet Volume 7.7; Monocytes % (A) 6 %; Neutrophils # (A) 15.1 k/uL (1.3-7.7); Neutrophils % (A) 87 %; Platelet Count 271 k/uL (150-450); RBC 2.51 m/uL (4.30-5.90); RDW 12.7 % (11.5-15.5); WBC 17.4 k/uL (3.8-10.6)
[2020-07-05] MEDS: INSULIN ASPART (NovoLOG) 100 UNIT/ML VIAL SQ SCH ×4 (07:05→20:45)
[2020-07-05] MEDS: HEPARIN SODIUM,PORCINE 5,000 UNIT/ML 1 ML VIAL SQ SCH ×2 (07:44→20:45)
[2020-07-05] MEDS: GABAPENTIN 100 MG CAP PO SCH ×2 (07:45→20:45)
[2020-07-05] MEDS: THIAMINE 100 MG TAB PO SCH ×2 (07:45→17:37)
[2020-07-05] MEDS: cloNIDine HCL 0.1 MG TAB PO SCH ×3 (07:45→20:44)
[2020-07-05] MEDS: NICOTINE 14MG/24HR PATCH TRANSDERM SCH (07:45)
[2020-07-05] MEDS: FAMOTIDINE 20 MG TAB PO SCH (07:45)
[2020-07-05] MEDS: PANTOPRAZOLE 40 MG TABLET PO SCH (07:45)
[2020-07-05] MEDS: VALSARTAN 80 MG TAB PO SCH (07:46)
[2020-07-05] MEDS: INSULIN DETEMIR (LEVEMIR) 100 UNIT/ML SYR SQ SCH ×2 (07:46→20:45)
--- NOTE | 2020-07-05 09:05 | P.CONS ---
History of Present Illness - Reason for Consult Consult date: 07/04/20 Right diabetic foot infection Requesting physician: Willy Macario - Chief Complaint Right foot pain swelling redness x 3 days - History of Present Illness Patient is 65-year-old male presenting to the ER at [facility] yesterday for evaluation of right foot infection apparently the patient noticed to having swelling and redness of the right foot area that has gradually progressed over the last few days patient had did have a callus on the plantar aspect of the right foot at the base of the first metatarsal head patient noticed a dark spot at that site a few days ago and subsequently noticed his right foot becoming swollen and red and painful patient describing the pain to be throbbing in test is almost 7-8 out of 10 and no radiation did have mild drainage no significant foul-smelling the with these symptoms the patient was evaluated by the ER physician on arrival to the emergency room the patient was afebrile subsequently did spike a fever of 101F patient was tachycardic and did have a white count of 23.1 with elevated sed rate and a CRP of 565, patient did have x-rays of the foot which show soft tissue swelling about the first me tatarsal phalangeal joint with internal air, patient subsequently did have a CT of the foot which is suggestive of soft tissue infection with gas in the subcutis tissue adjacent to the medial first metatarsal, patient has been evaluated by vascular surgery and did have bedside debridement of his wound which was noticed to be tracking down to the bone, culture has been obtained he also have blood cultures were obtained as well which are not available the back positive with gram-positive cocci patient be started on multiple antibiotics, infectious disease was consulted for further management of antibiotic therapy Review of Systems Positive point has been mentioned in the HPI rest of the systems are negative Past Medical History Past Medical History: Diabetes Mellitus, Hypertension, Vascular Disorder History of Any Multi-Drug Resistant Organisms: MRSA Year Discovered:: 05/03/20 MDRO Source:: Right 2nd finger Past Surgical History: No Surgical Hx Reported Additional Past Surgical History / Comment(s): hammer toe repair both feet Past Anesthesia/Blood Transfusion Reactions: No Reported Reaction Past Psychological History: No Psychological Hx Reported Smoking Status: Current every day smoker Past Alcohol Use History: Daily Past Drug Use History: None Reported - Past Family History Mother Additional Family Medical History / Comment(s): Parkinsons Disease Father Family Medical History: Cancer Additional Family Medical History / Comment(s): Lung Cancer Medications and Allergies Home Medications Medication Instructions Recorded Confirmed Type INSULIN LISPRO (humaLOG) [humaLOG] 8 units SQ AC-TID 02/23/17 07/03/20 History Latanoprost [Xalatan 0.005%] 1 drop BOTH EYES HS 02/23/17 07/03/20 History Valsartan [Diovan] 80 mg PO DAILY 02/23/17 07/03/20 History Acetaminophen Tab [Tylenol Tab] 1,000 mg PO Q6HR PRN 07/03/20 07/03/20 History Famotidine/Ca Carb/Mag Hydrox 1 tab PO DAILY 07/03/20 07/03/20 History [Pepcid Complete Tablet Chew] Gabapentin [Neurontin] 100 mg PO BID 07/03/20 07/03/20 History Insulin Glargine,Hum.rec.anlog 12 unit SQ DAILY 07/03/20 07/03/20 History [Basaglar Kwikpen U-100] metFORMIN HCL [Glucophage] 500 mg PO BID 07/03/20 07/03/20 History Allergies Allergy/AdvReac Type Severity Reaction Status Date / Time No Known Allergies Allergy Verified 07/03/20 14:01 Physical Exam Vitals: Vital Signs Temp Pulse Pulse Resp BP BP Pulse Ox 07/04/20 08:00 19 07/04/20 07:00 100.6 F H 95 18 91/54 100 07/04/20 06:22 85 19 90/60 96 07/04/20 02:27 100.6 F H 07/04/20 01:06 101.6 F H 104 H 20 116/57 97 07/03/20 18:05 98.1 F 98 18 120/76 100 07/03/20 14:45 98.2 F 82 18 98/61 100 Intake and Output 07/03/20 07/04/20 07/04/20 22:59 06:59 14:59 Intake Total 29.533 7.092 Balance 29.533 7.092 Intake: Intake, IV Titration 29.533 7.092 Amount Insulin Regular 100 unit 29.533 7.092 In Sodium Chloride 0.9% 100 ml @ Titrate IV .Q0M [facility] Rx#:[id number] Other: Weight 68.039 kg GENERAL DESCRIPTION: Middle-aged male lying in bed, no distress. No tachypnea or accessory muscle of respiration use. HEENT: Shows Pallor , no scleral icterus. Oral mucous membrane is dry. No pharyngeal erythema or thrush NECK: Trachea central, no thyromegaly. LUNGS: Unlabored breathing. Clear to auscultation anteriorly. No wheeze or crackle. HEART: S1, S2, regular rate and rhythm. No loud murmur ABDOMEN: Soft, no tenderness , guarding or rigidity, no organomegaly EXTREMITIES: Right foot medial and plantar aspect of her wound post-debridement did have swelling and redness of the right foot no foul-smelling drainage SKIN: No rash, no masses palpable. NEUROLOGICAL: The patient is awake, alert, oriented x3, mood and affect normal. Results CBC & Chem 7: 07/05/20 06:30 07/04/20 05:50 Labs: Abnormal Lab Results - Last 24 Hours (Table) 07/03/20 07/03/20 07/03/20 Range/Units 13:45 13:45 13:45 WBC 23.1 H (3.8-10.6) k/uL RBC 2.97 L (4.30-5.90) m/uL Hgb 10.3 L (13.0-17.5) gm/dL Hct 32.9 L (39.0-53.0) % MCV 110.7 H (80.0-100.0) fL Neutrophils # 20.7 H (1.3-7.7) k/uL Lymphocytes # 0.4 L (1.0-4.8) k/uL Monocytes # 1.5 H (0-1.0) k/uL Macrocytosis Marked A ESR 97 H (0-15) mm/hr APTT 34.7 H (22.0-30.0) sec Sodium 129 L (137-145) mmol/L Chloride 94 L (98-107) mmol/L BUN 27 H (9-20) mg/dL Creatinine 1.72 H (0.66-1.25) mg/dL Est GFR (CKD-EPI)AfAm (60.0-200.0) Est GFR (CKD-EPI)NonAf (60.0-200.0) Glucose 489 H (74-99) mg/dL POC Glucose (mg/dL) (75-99) mg/dL Plasma Lactic Acid David (0.7-2.0) mmol/L Calcium (8.7-10.3) mg/dL C-Reactive Protein 565.4 H (<10.0) mg/L Albumin 3.4 L (3.5-5.0) g/dL 07/03/20 07/03/20 07/03/20 Range/Units 13:45 18:50 20:35 WBC (3.8-10.6) k/uL RBC (4.30-5.90) m/uL Hgb (13.0-17.5) gm/dL Hct (39.0-53.0) % MCV (80.0-100.0) fL Neutrophils # (1.3-7.7) k/uL Lymphocytes # (1.0-4.8) k/uL Monocytes # (0-1.0) k/uL Macrocytosis ESR (0-15) mm/hr APTT (22.0-30.0) sec Sodium (137-145) mmol/L Chloride (98-107) mmol/L BUN (9-20) mg/dL Creatinine (0.66-1.25) mg/dL Est GFR (CKD-EPI)AfAm (60.0-200.0) Est GFR (CKD-EPI)NonAf (60.0-200.0) Glucose (74-99) mg/dL POC Glucose (mg/dL) >600 H 320 H (75-99) mg/dL Plasma Lactic Acid David 2.3 H* (0.7-2.0) mmol/L Calcium (8.7-10.3) mg/dL C-Reactive Protein (<10.0) mg/L Albumin (3.5-5.0) g/dL 07/03/20 07/03/20 07/03/20 Range/Units 21:03 22:48 23:55 WBC (3.8-10.6) k/uL RBC (4.30-5.90) m/uL Hgb (13.0-17.5) gm/dL Hct (39.0-53.0) % MCV (80.0-100.0) fL Neutrophils # (1.3-7.7) k/uL Lymphocytes # (1.0-4.8) k/uL Monocytes # (0-1.0) k/uL Macrocytosis ESR (0-15) mm/hr APTT (22.0-30.0) sec Sodium (137-145) mmol/L Chloride (98-107) mmol/L BUN (9-20) mg/dL Creatinine (0.66-1.25) mg/dL Est GFR (CKD-EPI)AfAm (60.0-200.0) Est GFR (CKD-EPI)NonAf (60.0-200.0) Glucose (74-99) mg/dL POC Glucose (mg/dL) 225 H 51 L 142 H (75-99) mg/dL Plasma Lactic Acid David (0.7-2.0) mmol/L Calcium (8.7-10.3) mg/dL C-Reactive Protein (<10.0) mg/L Albumin (3.5-5.0) g/dL 07/04/20 07/04/20 07/04/20 Range/Units 01:09 02:28 05:50 WBC 17.8 H (3.8-10.6) k/uL RBC 2.57 L (4.30-5.90) m/uL Hgb 8.9 L (13.0-17.5) gm/dL Hct 28.2 L (39.0-53.0) % MCV 109.5 H (80.0-100.0) fL Neutrophils # 15.4 H (1.3-7.7) k/uL Lymphocytes # 0.9 L (1.0-4.8) k/uL Monocytes # (0-1.0) k/uL Macrocytosis ESR (0-15) mm/hr APTT (22.0-30.0) sec Sodium (137-145) mmol/L Chloride (98-107) mmol/L BUN (9-20) mg/dL Creatinine (0.66-1.25) mg/dL Est GFR (CKD-EPI)AfAm (60.0-200.0) Est GFR (CKD-EPI)NonAf (60.0-200.0) Glucose (74-99) mg/dL POC Glucose (mg/dL) 164 H 112 H (75-99) mg/dL Plasma Lactic Acid David (0.7-2.0) mmol/L Calcium (8.7-10.3) mg/dL C-Reactive Protein (<10.0) mg/L Albumin (3.5-5.0) g/dL 07/04/20 07/04/20 07/04/20 Range/Units 05:50 07:37 11:28 WBC (3.8-10.6) k/uL RBC (4.30-5.90) m/uL Hgb (13.0-17.5) gm/dL Hct (39.0-53.0) % MCV (80.0-100.0) fL Neutrophils # (1.3-7.7) k/uL Lymphocytes # (1.0-4.8) k/uL Monocytes # (0-1.0) k/uL Macrocytosis ESR (0-15) mm/hr APTT (22.0-30.0) sec Sodium (137-145) mmol/L Chloride (98-107) mmol/L BUN 28.0 H (9-20) mg/dL Creatinine 1.6 H (0.66-1.25) mg/dL Est GFR (CKD-EPI)AfAm 52.4 L (60.0-200.0) Est GFR (CKD-EPI)NonAf 45.2 L (60.0-200.0) Glucose (74-99) mg/dL POC Glucose (mg/dL) 111 H 389 H (75-99) mg/dL Plasma Lactic Acid David (0.7-2.0) mmol/L Calcium 7.7 L (8.7-10.3) mg/dL C-Reactive Protein (<10.0) mg/L Albumin (3.5-5.0) g/dL Microbiology - Last 24 Hours (Table) 07/03/20 15:42 Gram Stain - Preliminary Foot - Left Wound Culture - Preliminary Assessment and Plan Assessment: 1- patient presented to hospital with sepsis source is right diabetic foot infection in this patient apparently did have a infected callus on the plantar aspect of the right foot status post debridement with a wound was noticed to be tracking down to the bone now with evidence of gram-positive bacteremia related to cover for both strep and community associated MRSA (1) Sepsis Current Visit: Yes Status: Acute Code(s): A41.9 - SEPSIS, UNSPECIFIED ORGANISM SNOMED Code(s): 49928022 (2) Gram-positive bacteremia Current Visit: Yes Status: Acute Code(s): R78.81 - BACTEREMIA SNOMED Code(s): 776122935712 (3) Foot osteomyelitis, right Current Visit: Yes Status: Acute Code(s): M86.9 - OSTEOMYELITIS, UNSPECIFIED SNOMED Code(s): 6006561622047107 (4) Diabetic ulcer of right foot Current Visit: Yes Status: Acute Code(s): E11.621 - TYPE 2 DIABETES MELLITUS WITH FOOT ULCER; L97.519 - NON-PRS CHRONIC ULCER OTH PRT RIGHT FOOT W UNSP S [place] SNOMED Code(s): 932738946 Plan: 1- blood cultures will be repeated to document clearance of bacteremia 2-Vancomycin pharmacy to dose target trough of 15 while watching kidney function and Vanco trough closely 3-discontinue Zosyn and clindamycin 4-Unasyn 3 g every 6 hours while waiting for the final ID of this pathogen 5-Aquacel silver packing of the wound dailyWe will follow on clinical condition and cultures to further adjust medication if needed Thank you for this consultation will follow this patient with you Time with Patient: Greater than 30
[2020-07-05 09:53] LABS: African American GFR (CKD) 74.1 (60.0-200.0); Anion Gap 7.4 mmol/L (4.00-12.00); Calcium 6.9 mg/dL (8.7-10.3); Carbon Dioxide 23.6 mmol/L (21.6-31.8)
--- NOTE | 2020-07-05 10:37 | P.PN ---
Subjective Progress Note Date: 07/05/20 Principal diagnosis: Right foot wound This is a 65-year-old male patient who came into the emergency department yesterday for right lower extremity wound. He underwent incision and debridement at the bedside yesterday with Dr. Marshall. Deep cultures were collected and sent. He is currently on Zosyn and vancomycin. Infectious disease and wound care management are also on consult. She was febrile through the night temperature got as high as 102.7. He denies any pain in the foot. He is able to freely move bilateral lower extremities. His right foot has a dressing with some serosanguineous drainage. 3 phase bone scan on the right lower extremity impression states positive three-phase bone scan of the entire right foot and ankle. Primary differential consideration given to cellulitis with persistent activity on blood pool due to possible vascular disease/congestion, or poor renal function with an adequate radiotracer clearance. Complex regional pain syndrome is included in differential. Consideration can be given to MRI examination of the foot to evaluate for osteomyelitis and vascular ultrasound evaluation of the right lower extremity. Objective - Vital Signs Vital signs: Vital Signs Temp 100.7 F H 07/05/20 07:00 Pulse 104 H 07/05/20 07:00 Resp 18 07/05/20 07:00 BP 129/71 07/05/20 07:00 Pulse Ox 93 L 07/05/20 07:00 Intake & Output 07/04/20 07/05/20 07/05/20 18:59 06:59 18:59 Intake Total 180 Balance 180 Weight 68.039 kg Intake: Oral 180 Other: Voiding Method Bedside Commode Bedside Commode # Voids 1 3 # Bowel Movements 1 3 - Exam General appearance: The patient is alert, oriented, in no acute distress. HET: Head is normocephalic and atraumatic. Pupils are equal and reactive. Oropharynx is clear without lesions. Neck: Supple without lymphadenopathy. Extremities: Right lower extremity with mild erythema and up through the calf. Right foot with dressing with serosanguineous drainage. Neurological: No focal deficits. Strength and sensation are grossly intact. - Labs CBC & Chem 7: 07/05/20 06:30 07/05/20 06:30 Labs: Abnormal Lab Results - Last 24 Hours (Table) 07/04/20 07/04/20 07/04/20 Range/Units 05:50 11:28 16:19 WBC (3.8-10.6) k/uL RBC (4.30-5.90) m/uL Hgb (13.0-17.5) gm/dL Hct (39.0-53.0) % MCV (80.0-100.0) fL Neutrophils # (1.3-7.7) k/uL Macrocytosis POC Glucose (mg/dL) 389 H 264 H (75-99) mg/dL Hemoglobin A1c 9.2 H (4.0-6.0) % Calcium (8.7-10.3) mg/dL 07/04/20 07/04/20 07/05/20 Range/Units 20:34 23:08 01:06 WBC (3.8-10.6) k/uL RBC (4.30-5.90) m/uL Hgb (13.0-17.5) gm/dL Hct (39.0-53.0) % MCV (80.0-100.0) fL Neutrophils # (1.3-7.7) k/uL Macrocytosis POC Glucose (mg/dL) 394 H 401 H 349 H (75-99) mg/dL Hemoglobin A1c (4.0-6.0) % Calcium (8.7-10.3) mg/dL 07/05/20 07/05/20 07/05/20 Range/Units 06:30 06:30 06:42 WBC 17.4 H (3.8-10.6) k/uL RBC 2.51 L (4.30-5.90) m/uL Hgb 8.6 L (13.0-17.5) gm/dL Hct 27.8 L (39.0-53.0) % MCV 110.5 H (80.0-100.0) fL Neutrophils # 15.1 H (1.3-7.7) k/uL Macrocytosis Marked A POC Glucose (mg/dL) 102 H (75-99) mg/dL Hemoglobin A1c (4.0-6.0) % Calcium 6.9 L (8.7-10.3) mg/dL Microbiology - Last 24 Hours (Table) 07/03/20 13:45 Blood Culture Gram Stain - Preliminary Blood Blood Culture - Preliminary Presumptive MRSA 07/04/20 13:00 Gram Stain - Preliminary Foot - Right Wound Culture - Preliminary 07/04/20 13:00 Anaerobic Culture - Preliminary Foot - Right 07/03/20 15:42 Gram Stain - Preliminary Foot - Left Wound Culture - Preliminary Presumptive MRSA Gram Neg Bacilli 07/03/20 13:45 Blood Culture - Final Blood Assessment and Plan Assessment: 1. Leukocytosis 2. Diabetic foot infection 3. Plantar ulceration of the right foot with tracking 4. Alcohol abuse 5. Peripheral neuropathy 6. Tobacco abuse Plan: The patient is status post debridement of right foot wound. Cultures obtained, await results. Continue antibiotic therapy per recommendations of infectious disease. Wound management per wound care. Further recommendations to follow. The impression and plan of care has been dictated as directed. Dr. Garcia I performed a history and examination of this patient, discussed the same with the dictator. I agree with the dictator's note ,documented as a scribe. Any additional findings or plans will be noted.
[2020-07-05 12:11] LABS: Glucose,Whole Blood 109 mg/dL (75-99)
[2020-07-05] MEDS: MULTIVITAMINS, THERA 1 EACH TAB PO SCH (13:21)
--- NOTE | 2020-07-05 16:19 | PN ---
PROGRESS NOTE DATE OF SERVICE: 07/05/2020 This 65-year-old gentleman who was admitted with right foot diabetic infection had debrided by Vascular Surgery. No chest pain. No palpitations. No fever. The bone scan showed possible osteomyelitis. REVIEW OF SYSTEMS: CARDIOVASCULAR SYSTEM: No angina, palpitations. RESPIRATORY SYSTEM: As mentioned earlier. GI: As mentioned earlier. : No dysuria or retention. NERVOUS SYSTEM: No numbness, weakness. MEDICATIONS: Current medications are reviewed and include Tylenol, [place], Unasyn, Catapres, Neurontin, heparin, Levemir, Ativan, vancomycin, Habitrol, Zofran, Protonix, Restoril, Diovan, vancomycin. PHYSICAL EXAMINATION: Alert and oriented x3. Pulse 99, blood pressure 106/50, respiration 18, temperature 100.3, pulse ox 94% on room air. HEENT: Conjunctivae normal. NECK: No jugular venous distention. CARDIOVASCULAR SYSTEM: S1, S2 muffled. RESPIRATORY SYSTEM: Breath sounds diminished at the bases. No rhonchi. No crackles. ABDOMEN: Soft, non-tender. LEGS: Right leg ulcer present. NERVOUS SYSTEM: No focal deficit. LABS: WBC 17.4, hemoglobin is 8.6. The culture showed presumptive MRSA and Gram- negative bacilli. Blood culture showed MRSA. ASSESSMENT: 1. Acute right diabetic foot ulcer infection with possible osteomyelitis and sepsis with methicillin-resistant Staphylococcus aeruginosa and Gram-negative bacilli. 2. Possible osteomyelitis. 3. Increased white count. 4. Diabetes mellitus, type 2, uncontrolled with hyperglycemia. 5. Anemia, macrocytic. 6. History of ETOH. 7. Hyponatremia. 8. Increased creatinine with acute renal failure with acute tubular necrosis. 9. Elevated plasma lactic acid with sepsis. 10.Increased CRP. 11.FULL CODE. RECOMMENDATIONS AND DISCUSSION: I recommend to continue current medications, continue with the monitoring, symptomatic treatment. Patient has been started on Lantus at this time. The blood sugar is slightly better. It went up to 401 yesterday. Vascular Surgery is planning possible debridement in the surgical suite and cultures are possibly showing MRSA. The patient is on vancomycin. Closely follow with Infectious Disease. Prognosis guarded. Further recommendations to follow. MMODL / IJN: [id number] / MTDSean
[2020-07-05 17:00] LABS: Glucose,Whole Blood 250 mg/dL (75-99)
[2020-07-05 20:42] LABS: Glucose,Whole Blood 216 mg/dL (75-99)
[2020-07-05] MEDS: LATANOPROST 0.005% OPHTH DROPS 2.5 ML BTL BOTH EYES SCH (20:46)
--- NOTE | 2020-07-05 23:31 | PN ---
PROGRESS NOTE DATE OF SERVICE: 07/05/2020 REASON FOR FOLLOWUP: Right diabetic foot infection with underlying osteomyelitis and MRSA bacteremia. INTERVAL HISTORY: The patient is still running a fever, though hemodynamically stable. Denies having any chest pain or cough. No abdominal pain or worsening pain to the right foot. PHYSICAL EXAMINATION: Blood pressure 102/61 with a pulse of 99, temperature 102.8. He is 96% on room air. General description is a middle-aged male lying in bed in no distress. RESPIRATORY SYSTEM: Unlabored breathing, clear to auscultation anteriorly. HEART: S1, S2. Regular rate and rhythm. ABDOMEN: Soft, no tenderness. Right foot wound deep with redness, minimal drainage. LABS: Hemoglobin is 8,6, white count 17.4, BUN of 24, creatinine is 1.2. DIAGNOSTIC IMPRESSION AND PLAN: Patient with right diabetic foot infection with concern for underlying osteomyelitis and wound at the base of the right big toe. Persistent fever despite being on vancomycin, will discuss with pharmacy to make sure that the trough is therapeutic. Continue Unasyn as the left foot also shows Citrobacter to cover for the gram- negative and anaerobes. Await for the surgical debridement per Vascular Surgery and continue supportive care. MMODL / IJN: [id number] / JOURDAN
[2020-07-06] MEDS: SODIUM CHLORIDE 0.9% 1,000 ML IV SCH ×2 (03:13→12:07)
[2020-07-06] MEDS: AMPICILLIN-SULBACTAM 3 GM in SODIUM CHLORIDE 0.9% 100 ML IVPB SCH ×4 (05:23→23:37)
[2020-07-06 06:11] LABS: Basophils % (A) 0 %; Eosinophils # (A) 0.1 k/uL (0-0.7); Eosinophils % (A) 0 %; HGB 8.7 gm/dL (13.0-17.5); Lymphocytes # (A) 0.8 k/uL (1.0-4.8); Lymphocytes % (A) 6 %; MCH 33.7 pg (25.0-35.0); MCHC 30.9 g/dL (31.0-37.0); Macrocytosis Moderate; Mean Platelet Volume 7.7; Monocytes # (A) 1.1 k/uL (0-1.0); Monocytes % (A) 8 %; Neutrophils # (A) 11.8 k/uL (1.3-7.7); Neutrophils % (A) 84 %; Platelet Count 312 k/uL (150-450); RBC 2.57 m/uL (4.30-5.90); RDW 12.9 % (11.5-15.5)
[2020-07-06] MEDS: HEPARIN SODIUM,PORCINE 5,000 UNIT/ML 1 ML VIAL SQ SCH ×2 (07:08→21:09)
[2020-07-06] MEDS: INSULIN DETEMIR (LEVEMIR) 100 UNIT/ML SYR SQ SCH ×2 (07:09→21:10)
[2020-07-06 07:28] LABS: Glucose,Whole Blood 45 mg/dL (75-99)
[2020-07-06 07:32] LABS: Glucose,Whole Blood 42 mg/dL (75-99)
[2020-07-06] MEDS: DEXTROSE 50% SYRINGE 50 ML IVP STA ×2 (07:36→12:17)
[2020-07-06] MEDS: PANTOPRAZOLE 40 MG TABLET PO SCH (07:42)
[2020-07-06] MEDS: cloNIDine HCL 0.1 MG TAB PO SCH ×3 (07:42→21:08)
[2020-07-06] MEDS: INSULIN ASPART (NovoLOG) 100 UNIT/ML VIAL SQ SCH ×4 (07:42→21:10)
[2020-07-06] MEDS: THIAMINE 100 MG TAB PO SCH ×2 (07:42→17:31)
[2020-07-06] MEDS: GABAPENTIN 100 MG CAP PO SCH ×2 (07:43→21:08)
[2020-07-06] MEDS: VALSARTAN 80 MG TAB PO SCH (07:43)
[2020-07-06 07:46] LABS: Glucose,Whole Blood 184 mg/dL (75-99)
[2020-07-06] MEDS: NICOTINE 14MG/24HR PATCH TRANSDERM SCH (07:46)
[2020-07-06] MEDS: ACETAMINOPHEN TAB 325 MG TAB PO PRN ×2 (07:46→15:51)
[2020-07-06] MEDS: DEXTROSE 5%-0.9% NACL 1,000 ML IV SCH (08:42)
[2020-07-06 09:28] LABS: Glucose,Whole Blood 92 mg/dL (75-99)
[2020-07-06 10:13] LABS: Anion Gap 7.5 mmol/L (4.00-12.00); BUN/Creat Ratio 13.33 Ratio (12.00-20.00); Calcium 7.2 mg/dL (8.7-10.3); Carbon Dioxide 21.5 mmol/L (21.6-31.8); Non-African American GFR(CKD) 90.6 (60.0-200.0); Potassium 3.9 mmol/L (3.5-5.5)
[2020-07-06] MEDS ORDERED: VANCOMYCIN TROUGH DUE 1 EACH MISC MISCELLANE ONE (11:00)
[2020-07-06] MEDS ORDERED: IV FLUID CONTINUATION 1,000 ML IV ONE ×2 (11:59)
[2020-07-06] MEDS ORDERED: LACTATED RINGERS 1,000 ML IV ONE ×2 (11:59)
[2020-07-06 12:07] LABS: Glucose,Whole Blood 62 mg/dL (75-99)
[2020-07-06] MEDS: MULTIVITAMINS, THERA 1 EACH TAB PO SCH (12:07)
[2020-07-06 12:35] LABS: Glucose,Whole Blood 103 mg/dL (75-99)
[2020-07-06] MEDS ORDERED: ONDANSETRON 4 MG/2 ML VIAL IVP ONE (12:44)
[2020-07-06] MEDS ORDERED: MIDAZOLAM 2 MG/2 ML VIAL ONE (12:48)
[2020-07-06] MEDS ORDERED: fentaNYL (PF) 50 MCG/ML 2 ML AMP ONE (12:48)
[2020-07-06] MEDS ORDERED: diphenhydrAMINE 50 MG/ML 1 ML VIAL ONE (12:48)
--- NOTE | 2020-07-06 13:20 | P.PN ---
Progress Note - Text Progress Note Date: 07/06/20 Prior to his procedure we reviewed with the patient in detail current pathology with purulence going into the depth of the foot requiring further surgical debridement. We discussed with him the potential for eventually having to remove part or all of the foot. We discussed with him the goal of preserving as much of the foot as possible. He verbalizes an understanding of the current unknowns and his agreement with our plan.
--- NOTE | 2020-07-06 13:28 | P.OP ---
Date of Procedure: 07/06/20 Preoperative Diagnosis: Diabetic infection right foot involving deep structures Postoperative Diagnosis: Same Procedure(s) Performed: Surgical debridement of right foot. Anesthesia: MAC Surgeon: Darci Cam Estimated Blood Loss (ml): 50 Pathology: other (Deep tissue for culture) Condition: stable Disposition: PACU Indications for Procedure: The patient is a poorly controlled diabetic who was admitted due to pain and open wounds with purulence of the right foot. He had gone through previous debridement on the floor but was found to have further deep infection requiring more sedation for adequate debridement. Operative Findings: On exploration we found a lot of necrotic grayish tissue on the plantar surface in the area of the first MP joint as well as medial and lateral to the base of the right first proximal phalanx. He also had some grayish purulent tissue proximal and then a track up into the deep compartment of the foot between the first and second metatarsals. The surrounding tissues appeared fairly healthy with good blood supply. Description of Procedure: With the patient in supine position under benefit of IV sedation we prepped and draped in standard fashion. We sharply excised the overlying skin over the areas of purulence on the plantar aspect around the first metatarsal phalangeal joint. There was some tissue between the first and second MP joints. On probing all areas we found a tract with purulence going down between the bodies of the first and second metatarsals. We opened up the skin over this and then probed these areas digitally. We found the surrounding tissue to seem to be intact. We removed all further nonviable soft tissue. We did leave periosteum intact over the first proximal phalanx and the metatarsal. There was no open involvement of the internal aspects of the first MP joint. Our initial measurement was about 2.5 x 2.5 cm x 0.4 cm's in depth. At the end of our debridement the entire opening was about 10 x 5 cm and the depths into the foot was about 5 cm. We did expose periosteum and subcutaneous tissue and the deep compartment of the foot. We then irrigated with half-strength peroxide. This was rinsed with saline. We then packed the wound with wet-to-dry Kerlix. Sterile dressings were applied. The patient tolerated the procedure well and was taken recovery area in stable condition. Consider prognosis for foot salvage guarded.
[2020-07-06 13:34] LABS: Glucose,Whole Blood 110 mg/dL (75-99)
--- NOTE | 2020-07-06 14:05 | P.PN ---
Progress Note - Text Progress Note Date: 07/06/20 Patient was in the operating room for debridement. Exam deferred. We'll continue to follow tomorrow. The above dictated assessment and findings were discussed with Dr. Garcia. The impression and plan of care have been directed as dictated.
[2020-07-06] MEDS: VANCOMYCIN 1,250 MG in SODIUM CHLORIDE 0.9% 250 ML IVPB SCH (15:51)
[2020-07-06 16:36] LABS: Glucose,Whole Blood 149 mg/dL (75-99)
[2020-07-06 20:35] LABS: Glucose,Whole Blood 391 mg/dL (75-99)
--- NOTE | 2020-07-06 21:44 | PN ---
PROGRESS NOTE DATE OF SERVICE: 07/06/2020 This 65-year-old gentleman admitted with right diabetic foot is being closely monitored at this time. The wound culture showed MRSA and blood cultures also showed MRSA indicating sepsis. The patient underwent surgical debridement of the right foot by Dr. Cam today. No chest pain. No palpitations. No fever. Past medical history reviewed. REVIEW OF SYSTEMS: CARDIOVASCULAR SYSTEM: No angina. RESPIRATION as mentioned earlier. GI mentioned earlier. no dysuria. Nervous system: Mild tremors present. CURRENT MEDICATIONS: Reviewed and include: 1. Tylenol. 2. [place]. 3. Unasyn. 4. Catapres. 5. Neurontin. 6. Heparin. 7. NovoLog. 8. Xalatan. 9. Ativan. 10.Narcan. 11.Zofran. 12.Restoril. 13.Diovan. 14.Vancomycin. PHYSICAL EXAMINATION: Alert and oriented times three. Pulse 92. Blood pressure 127/73, respiration 16. Temperature normal. Pulse ox 97% on room air. HEENT: Conjunctivae normal. NECK: No JVD. CARDIOVASCULAR: S1, S2 muffled. RESPIRATORY: Breath sounds diminished in the bases. No rhonchi. No crackles. ABDOMEN: Soft, nontender. LEGS: Right foot debridement. NERVOUS SYSTEM: Peripheral neuropathy. LABS: Accu-Cheks 110, 149, WBC 14, hemoglobin is 8.7. ASSESSMENT: 1. Acute right diabetic foot ulcer with possible osteomyelitis and sepsis with MRSA and as well as MRSA, status post surgical debridement. 2. Citrobacter Braki from the wound culture. 3. Possible osteomyelitis of the right foot. 4. Increased WBC. 5. Diabetes mellitus type 2, uncontrolled with hyperglycemia. 6. Anemia, macrocytic. 7. History of ETOH. 8. Acute delirium tremens. 9. Hyponatremia. 10.Increased creatinine with acute renal failure acute tubular necrosis. 11.Elevated plasma lactic acid secondary to sepsis. 12.Increased CRP. 13.FULL CODE. RECOMMENDATIONS AND DISCUSSION: Recommend to continue current medications, symptomatic treatment. Continue with CIWA protocol. Continue with broad-spectrum IV antibiotics. Follow closely with Infectious Disease and surgery. Possible PICC line. Otherwise, guarded prognosis because of multiple complex medical issues. Continue the antibiotics. Further recommendations to follow. The patient is on a combination of Unasyn and vancomycin. MMODL / IJN: [id number] /
--- NOTE | 2020-07-06 23:08 | PN ---
PROGRESS NOTE DATE OF SERVICE: 07/06/2020 REASON FOR FOLLOWUP: Left diabetic foot infection and underlying osteomyelitis and bacteremia. INTERVAL HISTORY: Patient was taken to the OR today and this patient who is status post surgical debridement of the right foot. Patient tolerated the procedure. The patient currently denies having any chest pain. No shortness of breath or cough. No nausea, no vomiting. No abdominal pain. No diarrhea. PHYSICAL EXAMINATION: Blood pressure 131/70 with a pulse of 105. Temperature 98.5. He is 94% on room air. General description is a middle-aged male lying in bed in no distress. Respiratory system: Unlabored breathing, clear to auscultation anteriorly. Heart S1, S2. Regular rate and rhythm. Abdomen: Soft, no tenderness. Left foot is currently dressed up. No obvious drainage on the dressing. LABS: Hemoglobin 8.7, white count 14, BUN of 12, creatinine 0.9. DIAGNOSTIC IMPRESSION AND PLAN: Patient with left diabetic foot infection with wound on the plantar aspect of the left big toe with MRSA bacteremia. Local cultures also positive for Citrobacter. The patient is currently covered with vancomycin and Unasyn to continue. Local wound care per Surgery. Continue supportive care. MMODL / IJN: [id number] /
[2020-07-06] MEDS: LATANOPROST 0.005% OPHTH DROPS 2.5 ML BTL BOTH EYES SCH (23:10)
[2020-07-07] MEDS: DEXTROSE 5%-0.9% NACL 1,000 ML IV SCH ×2 (01:21→19:34)
[2020-07-07] MEDS: VANCOMYCIN 1,250 MG in SODIUM CHLORIDE 0.9% 250 ML IVPB SCH ×2 (03:21→15:09)
[2020-07-07] MEDS: AMPICILLIN-SULBACTAM 3 GM in SODIUM CHLORIDE 0.9% 100 ML IVPB SCH ×3 (05:43→17:16)
[2020-07-07 06:46] LABS: Basophils % (A) 0 %; Eosinophils # (A) 0.1 k/uL (0-0.7); Eosinophils % (A) 1 %; HCT 26.6 % (39.0-53.0); HGB 8.4 gm/dL (13.0-17.5); Lymphocytes # (A) 1.1 k/uL (1.0-4.8); Lymphocytes % (A) 9 %; MCH 34.6 pg (25.0-35.0); MCHC 31.6 g/dL (31.0-37.0); MCV 109.6 fL (80.0-100.0); Mean Platelet Volume 7.4; Monocytes # (A) 1.2 k/uL (0-1.0); Monocytes % (A) 9 %; Neutrophils # (A) 9.7 k/uL (1.3-7.7); Neutrophils % (A) 78 %; Platelet Count 452 k/uL (150-450); RBC 2.42 m/uL (4.30-5.90); RDW 12.9 % (11.5-15.5); WBC 12.4 k/uL (3.8-10.6)
[2020-07-07 06:47] LABS: Macrocytosis Marked
[2020-07-07 07:16] LABS: Glucose,Whole Blood 147 mg/dL (75-99)
[2020-07-07] MEDS: PANTOPRAZOLE 40 MG TABLET PO SCH (08:43)
[2020-07-07] MEDS: GABAPENTIN 100 MG CAP PO SCH ×2 (08:43→21:22)
[2020-07-07] MEDS: cloNIDine HCL 0.1 MG TAB PO SCH ×3 (08:43→21:22)
[2020-07-07] MEDS: NICOTINE 14MG/24HR PATCH TRANSDERM SCH (08:43)
[2020-07-07] MEDS: INSULIN DETEMIR (LEVEMIR) 100 UNIT/ML SYR SQ SCH ×2 (08:43→21:22)
[2020-07-07] MEDS: HEPARIN SODIUM,PORCINE 5,000 UNIT/ML 1 ML VIAL SQ SCH ×2 (08:43→21:22)
[2020-07-07] MEDS: THIAMINE 100 MG TAB PO SCH ×2 (08:43→17:16)
[2020-07-07] MEDS: ACETAMINOPHEN TAB 325 MG TAB PO PRN (08:43)
[2020-07-07] MEDS: INSULIN ASPART (NovoLOG) 100 UNIT/ML VIAL SQ SCH ×4 (08:44→21:22)
[2020-07-07] MEDS: VALSARTAN 80 MG TAB PO SCH (08:44)
[2020-07-07 09:15] LABS: African American GFR (CKD) 92.4 (60.0-200.0); Anion Gap 8.7 mmol/L (4.00-12.00); Calcium 6.8 mg/dL (8.7-10.3); Carbon Dioxide 21.3 mmol/L (21.6-31.8); Non-African American GFR(CKD) 79.7 (60.0-200.0); Potassium 4.2 mmol/L (3.5-5.5)
[2020-07-07 12:03] LABS: Glucose,Whole Blood 296 mg/dL (75-99)
[2020-07-07] MEDS: MULTIVITAMINS, THERA 1 EACH TAB PO SCH (12:08)
--- NOTE | 2020-07-07 15:59 | PN ---
PROGRESS NOTE DATE OF SERVICE: 07/07/2020 This 65-year-old gentleman admitted with right foot diabetic foot and possibly osteomyelitis, being closely monitored at this time. The cultures are showing MRSA and Citrobacter Braki. The initial blood cultures showed MRSA, but currently is negative. Patient being closely monitored. The patient had debridement yesterday. No chest pain. No palpitations. Mild fever is noted today. Past medical history reviewed. REVIEW OF SYSTEMS: CARDIOVASCULAR SYSTEM: No angina or palpitations. RESPIRATIONS: As mentioned earlier. GI as mentioned earlier. : No dysuria. NERVOUS SYSTEM: No numbness or weakness. CURRENT MEDICATIONS: Reviewed and include: 1. Tylenol. 2. [place]. 3. Unasyn. 4. Catapres. 5. Heparin. 6. Xalatan. 7. Ativan. 8. Narcan. 9. Zofran. 10.Vancomycin. PHYSICAL EXAM: Patient is alert, oriented x3. Pulse 97, blood pressure 119/64, respirations 16, temperature 100 degrees. Pulse ox 93% on room air. HEENT: Conjunctivae normal. NECK: No JVD. CARDIOVASCULAR: S1, S2 muffled. RESPIRATORY: Breath sounds diminished in the bases. A few scattered rhonchi. ABDOMEN: Soft, nontender. LEGS: Right foot osteomyelitis. NERVOUS SYSTEM: No focal deficits. LAB STUDIES: WBC 12.2, hemoglobin is 8.4, sodium 137, potassium 4.2. Glucose 144, calcium 6.8. ASSESSMENT: 1. Acute right diabetic foot ulcer with possible osteomyelitis and sepsis with MRSA and as well as status post surgical debridement. 2. Citrobacter Braki from the wound culture. 3. Osteomyelitis of the right foot possibly. 4. Increased WBC. 5. Hypercalcemia. 6. Diabetes mellitus type 2 uncontrolled with hyperglycemia. 7. Anemia, macrocytic. 8. History of ETOH. 9. Acute delirium tremens. 10.Hyponatremia. 11.Increased creatinine with acute renal failure with acute tubular necrosis. 12.Elevated plasma lactic acid secondary to sepsis. 13.Increased CRP. 14.FULL CODE. RECOMMENDATIONS AND DISCUSSION: Continue current medications, management and symptomatic treatment. Recommend supplement calcium. Other than that, I would also recommend continue with IV antibiotics, set of blood cultures and closely follow with Infectious Disease. Guarded prognosis. Further recommendations to follow. MMODL / IJN: [id number] /
[2020-07-07 17:00] LABS: Glucose,Whole Blood 199 mg/dL (75-99)
[2020-07-07] MEDS: CALCIUM CARB-VIT D 500MG-200UN 1 EACH TAB PO SCH (17:16)
[2020-07-07] MEDS: SODIUM CHLORIDE 0.9% 1,000 ML IV SCH (19:33)
[2020-07-07 20:55] LABS: Glucose,Whole Blood 275 mg/dL (75-99)
[2020-07-07] MEDS: LATANOPROST 0.005% OPHTH DROPS 2.5 ML BTL BOTH EYES SCH (21:23)
--- NOTE | 2020-07-07 23:32 | PN ---
PROGRESS NOTE DATE OF SERVICE: 07/07/2020 REASON FOR FOLLOWUP: Right diabetic foot infection with osteomyelitis and bacteremia and MRSA. INTERVAL HISTORY: The patient is currently afebrile. The patient is breathing comfortably. Overall pain and discomfort in the right foot is currently controlled. Denies any chest pain, shortness of breath or cough. No abdominal pain. No diarrhea. PHYSICAL EXAMINATION: Blood pressure 130/69, pulse of 90, temperature 98.1. He is 92% on room air. General description: The patient is a middle-aged male lying in bed in no distress. Respiratory system: Unlabored breathing, clear to auscultation anteriorly. Heart S1, S2. Regular rate and rhythm. Abdomen soft, no tenderness. Right foot is currently dressed up. Minimal blood stained drainage on the dressing. LABS: Hemoglobin 8.4, white count 8.4, BUN of 10, creatinine 1.0. DIAGNOSTIC IMPRESSION AND PLAN: Patient with right diabetic foot infection with underlying osteomyelitis, status post debridement. Local culture with MRSA Acinetobacter. Blood cultures and MRSA. Follow up blood culture has been negative so far. Patient is covered with Unasyn and vancomycin to continue. He will need a PICC line for outpatient IV antibiotics. Continue supportive care. MMODL / IJN: [id number] /
[2020-07-08] MEDS: SODIUM CHLORIDE 0.9% 1,000 ML IV SCH ×4 (00:04→22:39)
[2020-07-08] MEDS: ACETAMINOPHEN TAB 325 MG TAB PO PRN ×2 (00:36→16:17)
[2020-07-08] MEDS: AMPICILLIN-SULBACTAM 3 GM in SODIUM CHLORIDE 0.9% 100 ML IVPB SCH ×4 (00:36→17:02)
[2020-07-08] MEDS: DEXTROSE 5%-0.9% NACL 1,000 ML IV SCH ×2 (03:47→19:36)
[2020-07-08] MEDS: VANCOMYCIN 1,250 MG in SODIUM CHLORIDE 0.9% 250 ML IVPB SCH ×2 (03:54→14:58)
[2020-07-08 06:08] LABS: Basophils # (A) 0.1 k/uL (0-0.2); Basophils % (A) 0 %; Eosinophils # (A) 0.3 k/uL (0-0.7); Eosinophils % (A) 2 %; HCT 27.2 % (39.0-53.0); HGB 8.4 gm/dL (13.0-17.5); Hypochromasia Slight; Lymphocytes # (A) 1.4 k/uL (1.0-4.8); Lymphocytes % (A) 11 %; MCH 34.2 pg (25.0-35.0); MCHC 30.9 g/dL (31.0-37.0); MCV 110.5 fL (80.0-100.0); Mean Platelet Volume 7.1; Monocytes # (A) 1.2 k/uL (0-1.0); Monocytes % (A) 10 %; Neutrophils # (A) 9.5 k/uL (1.3-7.7); Neutrophils % (A) 73 %; Platelet Count 623 k/uL (150-450); RBC 2.46 m/uL (4.30-5.90); RDW 12.6 % (11.5-15.5)
[2020-07-08 06:10] LABS: Glucose,Whole Blood 39 mg/dL (75-99)
[2020-07-08 06:27] LABS: Macrocytosis Marked
[2020-07-08 06:36] LABS: Glucose,Whole Blood 54 mg/dL (75-99)
[2020-07-08 06:53] LABS: Glucose,Whole Blood 94 mg/dL (75-99)
[2020-07-08] MEDS: INSULIN ASPART (NovoLOG) 100 UNIT/ML VIAL SQ SCH ×4 (08:40→20:39)
[2020-07-08] MEDS: NICOTINE 14MG/24HR PATCH TRANSDERM SCH (08:45)
[2020-07-08] MEDS: GABAPENTIN 100 MG CAP PO SCH ×2 (08:45→20:40)
[2020-07-08] MEDS: cloNIDine HCL 0.1 MG TAB PO SCH ×3 (08:45→20:40)
[2020-07-08] MEDS: THIAMINE 100 MG TAB PO SCH ×2 (08:45→16:59)
[2020-07-08] MEDS: MULTIVITAMINS, THERA 1 EACH TAB PO SCH (08:45)
[2020-07-08] MEDS: CALCIUM CARB-VIT D 500MG-200UN 1 EACH TAB PO SCH ×3 (08:45→16:59)
[2020-07-08] MEDS: HEPARIN SODIUM,PORCINE 5,000 UNIT/ML 1 ML VIAL SQ SCH ×2 (08:45→21:47)
[2020-07-08] MEDS: PANTOPRAZOLE 40 MG TABLET PO SCH (08:45)
[2020-07-08] MEDS: VALSARTAN 80 MG TAB PO SCH (08:45)
[2020-07-08 09:41] LABS: Anion Gap 7.8 mmol/L (4.00-12.00); BUN/Creat Ratio 7.78 Ratio (12.00-20.00); Calcium 7.1 mg/dL (8.7-10.3); Carbon Dioxide 20.2 mmol/L (21.6-31.8); Non-African American GFR(CKD) 90.6 (60.0-200.0); Potassium 4.1 mmol/L (3.5-5.5)
[2020-07-08] MEDS: INSULIN DETEMIR (LEVEMIR) 100 UNIT/ML SYR SQ SCH ×2 (10:43→20:39)
[2020-07-08 11:40] LABS: Glucose,Whole Blood 258 mg/dL (75-99)
--- NOTE | 2020-07-08 13:44 | XR ---
EXAMINATION TYPE: XR chest 1V portable DATE OF EXAM: 07/08/2020 Comparison: 02/07/2017 Clinical History: 65-year-old male SOB Findings: Heart upper limits of normal size. Mild interstitial prominence. Some patchy retrocardiac opacity. No pleural effusion. Impression: Increased interstitial change and patchy retrocardiac opacity. Correlate for bronchitis or atypical p neumonias. Focal atelectasis or developing infiltrate in the retrocardiac region not excluded.
[2020-07-08] MEDS ORDERED: VANCOMYCIN TROUGH DUE 1 EACH MISC MISCELLANE ONE (14:00)
--- NOTE | 2020-07-08 16:15 | PN ---
PROGRESS NOTE DATE OF SERVICE: 07/08/2020. HISTORY: This 65-year-old gentleman admitted with significant diabetic foot debridement. The most recent chest x-ray which was reviewed by me showed some increased interstitial changes. No chest pain. No palpitations. No fever. PAST MEDICAL HISTORY: Reviewed. REVIEW OF SYSTEMS: CARDIOVASCULAR SYSTEM: No angina. RESPIRATORY: As mentioned. GI: As mentioned earlier. : As mentioned earlier. NERVOUS SYSTEM: No numbness or weakness. CURRENT MEDICATIONS: Reviewed include Tylenol p.r.n., [place], Unasyn, Catapres, Neurontin. Medication doses are reviewed. PHYSICAL EXAMINATION: The patient is alert and oriented x3. Blood pressure 120/60, respirations 16, temperature 99.8, pulse ox 93% on room air. HEENT: Conjunctivae normal. NECK: No JVD. CARDIOVASCULAR: S1 and S2 muffled. LUNGS: Breath sounds diminished at the bases. Bilateral scattered rhonchi and crackles. ABDOMEN: Soft, nontender. LEGS: No edema. NERVOUS SYSTEM: No deficits. LABS: WBC 13, hemoglobin is 8.4, sodium 137, potassium 4.1. ASSESSMENT: 1. Acute right diabetic foot ulcer with possible osteomyelitis and sepsis with MRSA as well as status post surgical debridement. 2. Citrobacter brachy from the wound culture. 3. Osteomyelitis of the right foot, possibly. 4. History of WBC. 5. Hypercalcemia. 6. Rule out pulmonary fibrosis. 7. Diabetes mellitus type 2 uncontrolled with hyperglycemia. 8. Anemia macrocytic. 9. History of ETOH. 10.Acute delirium tremens. 11.Hyponatremia. 12.Increased creatinine with acute renal failure with acute tubular necrosis. 13.Elevated plasma lactic acid secondary to sepsis. 14.Elevated CRP. 15.Full code. RECOMMENDATIONS: Continue current management and will continue the broad-spectrum IV antibiotics. Chest x-ray personally reviewed. I would recommend a CT angio without any contrast. Otherwise, most recent cultures are negative. The blood cultures negative. PICC line. Possible IV antibiotics. Guarded prognosis because of multiple complex medical issues. Further recommendations to follow. MMODL / IJN: [id number] / MTDD
[2020-07-08 16:41] LABS: Glucose,Whole Blood 311 mg/dL (75-99)
[2020-07-08 20:19] LABS: Glucose,Whole Blood 330 mg/dL (75-99)
[2020-07-08] MEDS: LATANOPROST 0.005% OPHTH DROPS 2.5 ML BTL BOTH EYES SCH (22:32)
[2020-07-09] MEDS: AMPICILLIN-SULBACTAM 3 GM in SODIUM CHLORIDE 0.9% 100 ML IVPB SCH ×5 (00:20→23:52)
[2020-07-09 02:21] LABS: Glucose,Whole Blood 95 mg/dL (75-99)
[2020-07-09] MEDS: VANCOMYCIN 1,250 MG in SODIUM CHLORIDE 0.9% 250 ML IVPB SCH ×2 (02:48→15:01)
--- NOTE | 2020-07-09 03:29 | PN ---
PROGRESS NOTE DATE OF SERVICE: 07/08/2020 REASON FOR FOLLOWUP: Diabetic foot wound with underlying osteomyelitis and MRSA bacteremia. INTERVAL HISTORY: The patient is currently afebrile. He is breathing comfortably. Denies having any chest pain. No shortness of breath or cough. No nausea. No vomiting. No abdominal pain or pain to the right foot. PHYSICAL EXAMINATION: Blood pressure 122/71 with the pulse 83, temperature 98.3. He is 96% on room air. General description is a middle-aged male lying in bed in no distress. RESPIRATORY SYSTEM: Unlabored breathing, clear to auscultation anteriorly. HEART: S1, S2. Regular rate and rhythm. ABDOMEN: Soft. No tenderness. Right foot is currently dressed up. LABS: Hemoglobin is 8.4, white count 79556, BUN of 7, creatinine 0.9. Blood cultures 07/04 and have been negative. DIAGNOSTIC IMPRESSION AND PLAN: Patient with methicillin-resistant Staphylococcus aureus bacteremia secondary to right diabetic foot infection, status post debridement. Local culture positive for Citrobacter and MRSA. The patient is currently covered with vancomycin and Unasyn, getting a PICC line for outpatient IV antibiotic at least 6 weeks. Continue supportive care. MMODL / IJN: [id number] /
[2020-07-09] MEDS: DEXTROSE 5%-0.9% NACL 1,000 ML IV SCH (04:29)
[2020-07-09 06:59] LABS: Basophils % (A) 0 %; Eosinophils # (A) 0.3 k/uL (0-0.7); Eosinophils % (A) 3 %; Lymphocytes # (A) 1.2 k/uL (1.0-4.8); Lymphocytes % (A) 10 %; MCH 33.7 pg (25.0-35.0); MCHC 31.1 g/dL (31.0-37.0); MCV 108.4 fL (80.0-100.0); Macrocytosis Moderate; Mean Platelet Volume 7.1; Monocytes % (A) 8 %; Neutrophils # (A) 9.1 k/uL (1.3-7.7); Neutrophils % (A) 75 %; Platelet Count 819 k/uL (150-450); RBC 2.67 m/uL (4.30-5.90); RDW 12.6 % (11.5-15.5); WBC 12.2 k/uL (3.8-10.6)
[2020-07-09 07:12] LABS: Glucose,Whole Blood 51 mg/dL (75-99)
[2020-07-09] MEDS: INSULIN ASPART (NovoLOG) 100 UNIT/ML VIAL SQ SCH ×4 (07:18→20:52)
[2020-07-09] MEDS: INSULIN DETEMIR (LEVEMIR) 100 UNIT/ML SYR SQ SCH (07:18)
[2020-07-09 07:35] LABS: Glucose,Whole Blood 72 mg/dL (75-99)
[2020-07-09] MEDS: ACETAMINOPHEN TAB 325 MG TAB PO PRN (08:03)
[2020-07-09] MEDS: GABAPENTIN 100 MG CAP PO SCH ×2 (08:03→20:53)
[2020-07-09] MEDS: PANTOPRAZOLE 40 MG TABLET PO SCH (08:04)
[2020-07-09] MEDS: THIAMINE 100 MG TAB PO SCH ×2 (08:04→17:39)
[2020-07-09] MEDS: MULTIVITAMINS, THERA 1 EACH TAB PO SCH (08:04)
[2020-07-09] MEDS: NICOTINE 14MG/24HR PATCH TRANSDERM SCH (08:04)
[2020-07-09] MEDS: VALSARTAN 80 MG TAB PO SCH (08:04)
[2020-07-09] MEDS: cloNIDine HCL 0.1 MG TAB PO SCH ×3 (08:04→20:53)
[2020-07-09] MEDS: CALCIUM CARB-VIT D 500MG-200UN 1 EACH TAB PO SCH ×3 (08:04→17:39)
[2020-07-09] MEDS: HEPARIN SODIUM,PORCINE 5,000 UNIT/ML 1 ML VIAL SQ SCH ×2 (08:11→20:52)
--- NOTE | 2020-07-09 09:06 | CT ---
EXAMINATION TYPE: CT chest wo con DATE OF EXAM: 07/09/2020 COMPARISON: Chest radiograph 07/08/2020. CT chest 02/23/2017. HISTORY: pulmonary fibrosis CT DLP: 367.2 mGycm Automated exposure control for dose reduction was used. CONTRAST: CT scan of the chest is performed without intravenous contrast. FINDINGS: LUNGS: There are moderate bilateral pleural effusions, right greater than left. Mild adjacent atelect asis. Mild hazy groundglass opacities are seen. Mild prominence of the pulmonary vasculature. No pneu mothorax. Redemonstrated minimal apical pleural thickening. The tracheobronchial tree is patent. MEDIASTINUM/SOFT TISSUES: No axillary lymphadenopathy. Lack of intravenous contrast limits evaluation for hilar lymphadenopathy. Redemonstrated hilar calcified lymph nodes. Increased size of mediastinal lymph nodes versus 2017. For example a pretracheal node measures 13 mm (201:21) previously measuring 8 mm on 02/23/2017 comparison. A left prevascular lymph node measures 9 mm (201:22), previously 6 mm. The subcarinal lymph node measures 13 mm (201:30), previously 8 mm. Calcified coronary artery disease . Cardiac size is normal. No pericardial effusion. No thoracic aortic aneurysm. Mild calcified athero sclerotic disease of the arch and descending thoracic aorta. UPPER ABDOMEN: No adrenal nodule. There is body wall anasarca of the visualized upper abdomen. OSSEOUS: No acute osseous abnormality. Old healed sternal fracture deformity. Degenerative changes of the spine. IMPRESSION: 1. Moderate pleural effusions, right greater than left. 2. Mild pulmonary vascular congestion. Mild dependent groundglass opacities bilaterally likely repre sent interstitial edema. Less likely infectious or inflammatory pneumonitis. 3. Increased size of mediastinal lymph nodes, largest measuring up to 13 mm AP, previously 8 mm on [address] comparison. Findings may be reactive. Short-term follow-up imaging is recommended for resoluti on. 4. Body wall anasarca of the upper abdomen reflective of positive fluid balance.
[2020-07-09 10:36] LABS: Anion Gap 8.2 mmol/L (4.00-12.00); BUN/Creat Ratio 6.67 Ratio (12.00-20.00); Calcium 7.6 mg/dL (8.7-10.3); Carbon Dioxide 21.8 mmol/L (21.6-31.8); Non-African American GFR(CKD) 90.6 (60.0-200.0); Potassium 4.1 mmol/L (3.5-5.5)
[2020-07-09] MEDS: SODIUM CHLORIDE 0.9% 1,000 ML IV SCH ×2 (10:57→16:22)
[2020-07-09 11:28] LABS: Glucose,Whole Blood 177 mg/dL (75-99)
--- NOTE | 2020-07-09 12:20 | P.PN ---
Subjective Progress Note Date: 07/09/20 Principal diagnosis: Right foot wound The patient was seen and examined at the bedside. Right foot dressing intact with serous drainage. The patient has been having some low-grade fevers. He continues with Zosyn and vancomycin for MRSA infection of the right foot. He denies any pain. As for discharge to rehab with insertion of PICC line and continued IV antibiotics. Objective - Vital Signs Vital signs: Vital Signs Temp 98.6 F 07/09/20 07:00 Pulse 95 07/09/20 07:00 Resp 16 07/09/20 07:00 BP 133/82 07/09/20 07:00 Pulse Ox 94 L 07/09/20 07:00 Intake & Output 07/08/20 07/09/20 07/09/20 18:59 06:59 18:59 Intake Total 100 100 Balance 100 100 Intake: Intake, IV Titration 100 Amount Ampicillin-Sulbactam 3 gm 100 In Sodium Chloride 0.9% 100 ml @ 200 mls/hr IVPB Q6HR [facility] Rx#:[id number] Oral 100 Other: Voiding Method Bedside Commode Bedside Commode # Voids 2 # Bowel Movements 2 - Exam General appearance: The patient is alert, oriented, in no acute distress. HET: Head is normocephalic and atraumatic. Pupils are equal and reactive. Oropharynx is clear without lesions. Neck: Supple without lymphadenopathy. Extremities: Supple DP and PT pulse. Right dorsal aspect of foot with dry, sloughing skin. +1 Edema to right lower extremity. Right plantar aspect near the first metatarsophalangeal joint wound debridement to bone, no slough tissue noted, no active drainage noted, foul odor. Wound redressed with wet to dry packing. Neurological: No focal deficits. Strength and sensation are grossly intact. - Labs CBC & Chem 7: 07/09/20 06:41 07/09/20 06:41 Labs: Abnormal Lab Results - Last 24 Hours (Table) 07/08/20 07/08/20 07/08/20 Range/Units 05:51 11:39 16:39 WBC (3.8-10.6) k/uL RBC (4.30-5.90) m/uL Hgb (13.0-17.5) gm/dL Hct (39.0-53.0) % MCV (80.0-100.0) fL Plt Count (150-450) k/uL Neutrophils # (1.3-7.7) k/uL Carbon Dioxide 20.2 L (21.6-31.8) mmol/L BUN 7.0 L (9.0-27.0) mg/dL BUN/Creatinine Ratio 7.78 L (12.00-20.00) Ratio Glucose 34 L* (70-110) mg/dL POC Glucose (mg/dL) 258 H 311 H (75-99) mg/dL Calcium 7.1 L (8.7-10.3) mg/dL 07/08/20 07/09/20 07/09/20 Range/Units 20:14 06:41 07:10 WBC 12.2 H (3.8-10.6) k/uL RBC 2.67 L (4.30-5.90) m/uL Hgb 9.0 L (13.0-17.5) gm/dL Hct 29.0 L (39.0-53.0) % MCV 108.4 H (80.0-100.0) fL Plt Count 819 H (150-450) k/uL Neutrophils # 9.1 H (1.3-7.7) k/uL Carbon Dioxide (21.6-31.8) mmol/L BUN (9.0-27.0) mg/dL BUN/Creatinine Ratio (12.00-20.00) Ratio Glucose (70-110) mg/dL POC Glucose (mg/dL) 330 H 51 L (75-99) mg/dL Calcium (8.7-10.3) mg/dL 07/09/20 Range/Units 07:32 WBC (3.8-10.6) k/uL RBC (4.30-5.90) m/uL Hgb (13.0-17.5) gm/dL Hct (39.0-53.0) % MCV (80.0-100.0) fL Plt Count (150-450) k/uL Neutrophils # (1.3-7.7) k/uL Carbon Dioxide (21.6-31.8) mmol/L BUN (9.0-27.0) mg/dL BUN/Creatinine Ratio (12.00-20.00) Ratio Glucose (70-110) mg/dL POC Glucose (mg/dL) 72 L (75-99) mg/dL Calcium (8.7-10.3) mg/dL Microbiology - Last 24 Hours (Table) 07/05/20 06:30 Blood Culture - Preliminary Blood No Growth after 96 hours 07/04/20 18:00 Blood Culture - Preliminary Blood No Growth after 96 hours 07/04/20 13:00 Anaerobic Culture - Final Foot - Right Assessment and Plan Assessment: 1. Leukocytosis 2. Diabetic foot infection 3. Plantar ulceration of the right foot with tracking, status post debridement 4. Alcohol abuse 5. Peripheral neuropathy 6. Tobacco abuse Plan: Continue with IV antibiotics per recommendation of infectious disease. Plan is for patient to undergo PICC line placement today, with discharge to rehab. Patient should follow-up with wound care center and vascular surgery. Continue with daily wet-to-dry dressing change. The impression and plan of care has been dictated as directed. Dr. Garcia I performed a history and examination of this patient, discussed the same with the dictator. I agree with the dictator's note ,documented as a scribe. Any additional findings or plans will be noted.
[2020-07-09] MEDS ORDERED: IV FLUID CONTINUATION 1,000 ML IV ONE (13:28)
[2020-07-09] MEDS ORDERED: LIDOCAINE 1% INJ 10MG/ML (20 ML MDV) SQ ONE (13:43)
--- NOTE | 2020-07-09 14:37 | IR ---
EXAMINATION TYPE: IR cvc insert >=5 years DATE OF EXAM: 07/09/2020 COMPARISON: NONE CLINICAL HISTORY: Infection Needs long-term intravenous access for antibiotics. PROCEDURE: Hand hygiene obtained with soap and water and alcohol-based hand rub. After informed consent, the skin overlying the left brachial vein was localized with ultrasound and n oted to be compressible and patent. An ultrasound image was obtained and submitted on the patient's chart. The overlying skin was prepped and draped and Lidocaine was used for local anesthesia. A ski n eduard was made with a scalpel. Access was gained to the vein under ultrasound guidance with a 21 ga uge needle and a 0.018 inch wire was advanced. Access site was dilated with Peel-Away sheath and cat heter tailored to the appropriate length and advanced such that the distal tip is at the cavoatrial j unction. Spot image was obtained verifying placement. Catheter was fixed to the skin and a sterile dressing was placed following hemostasis. Catheter was aspirated and flushed with saline. Patient w as discharged in stable condition without complication.Maximal barrier technique is utilized. Ultras ound image is documented on the chart. Ultrasound used with sterile technique. Fluoro time and fluoroscopic images submitted to document procedure: 10 intraoperative images, 0.1 mi nutes fluoroscopy time IMPRESSION: STATUS POST ULTRASOUND AND FLUOROSCOPIC GUIDED PICC LINE PLACEMENT, READY FOR USE. THIS PROCEDURE WAS PERFORMED BY THE UNDERSIGNED.
[2020-07-09 16:24] LABS: Glucose,Whole Blood 337 mg/dL (75-99)
[2020-07-09 20:28] LABS: Glucose,Whole Blood 389 mg/dL (75-99)
[2020-07-09] MEDS: LATANOPROST 0.005% OPHTH DROPS 2.5 ML BTL BOTH EYES SCH (20:53)
--- NOTE | 2020-07-10 01:49 | PN ---
PROGRESS NOTE DATE OF SERVICE: 07/09/2020 REASON FOR FOLLOWUP: Right diabetic foot wound with underlying osteomyelitis and MRSA bacteremia. INTERVAL HISTORY: The patient is currently afebrile. Patient is breathing comfortably. Denies having any chest pain. No shortness of breath or cough. No abdominal pain or any worsening pain to the right foot. PHYSICAL EXAMINATION: Blood pressure is 163/89, pulse 104, temperature 98.1. He is 97% room air. General description is a middle-aged male lying in bed in no distress. RESPIRATORY SYSTEM: Unlabored breathing, clear to auscultation anteriorly. HEART: S1, S2. Regular rate and rhythm. ABDOMEN: Soft, no tenderness. Right foot is currently dressed up. No obvious drainage on the dressing. LABS: Hemoglobin 9, white count 12.2, BUN of 6, creatinine 0.9. DIAGNOSTIC IMPRESSION AND PLAN: Patient with right diabetic foot infection with underlying osteomyelitis. pt had culture positive for MRSA and Citrobacter. Patient is covered with vancomycin, pharmacy to dose and Unasyn. He will get a PICC line to continue vancomycin pharmacy to dose for 6 weeks. Unasyn will be switched over to oral Cipro and a close outpatient followup. MMODL / IJN: [id number] / JOURDAN
[2020-07-10] MEDS: VANCOMYCIN 1,250 MG in SODIUM CHLORIDE 0.9% 250 ML IVPB SCH ×2 (02:25→15:10)
[2020-07-10 02:44] LABS: Glucose,Whole Blood 340 mg/dL (75-99)
--- NOTE | 2020-07-10 03:05 | PN ---
PROGRESS NOTE DATE OF SERVICE: 07/09/2020 This 65-year-old gentleman, admitted with diabetic foot and osteomyelitis, being closely monitored. The PICC line is inserted, IV antibiotics have been arranged. The patient apparently is also evaluated for possible ECF rehab. No chest pain. No palpitations. No fever. PHYSICAL EXAMINATION: The patient is alert and oriented x3. Pulse 104, blood pressure 163/89, respiration 17, temperature 98.1, pulse ox 97% on room air. HEENT: Conjunctivae normal. NECK: No jugular venous distention. CARDIOVASCULAR: S1, S2 muffled. RESPIRATORY: Breath sounds diminished at the bases. No rhonchi, no crackles. ABDOMEN: Soft. LEGS: Right diabetic foot. LABS: WBC 12.2, hemoglobin is 9. Accu-Cheks are 48. ASSESSMENT: 1. Acute right diabetic foot ulcer with possible osteomyelitis and sepsis with MRSA as well as status post surgical debridement. 2. Citrobacter braakii from the wound culture. 3. Osteomyelitis of the right foot possible. 4. Increased WBC. 5. Hypocalcemia. 6. Rule out pulmonary fibrosis. 7. Diabetes mellitus type 2 uncontrolled with hyperglycemia. 8. Anemia macrocytic. 9. History of EtOH. 10.History of acute delirium tremens. 11.Hyponatremia. 12.Increased creatinine with acute renal failure with acute tubular necrosis. 13.Elevated plasma lactic acid secondary to sepsis. 14.Elevated CRP. 15.FULL CODE. RECOMMENDATIONS AND DISCUSSION: Recommend to continue current medications, continue symptomatic treatment. Continue with antibiotics. Possible ECF rehab. Monitor blood sugars closely. Adjust the insulin dosage. Prognosis guarded. Further recommendations to follow. MMODL / IJN: [id number] /
[2020-07-10] MEDS: SODIUM CHLORIDE 0.9% 1,000 ML IV SCH ×2 (03:51→08:28)
[2020-07-10] MEDS: AMPICILLIN-SULBACTAM 3 GM in SODIUM CHLORIDE 0.9% 100 ML IVPB SCH ×2 (04:52→12:29)
[2020-07-10 06:37] LABS: HGB 8.6 gm/dL (13.0-17.5); Hypochromasia Slight; MCH 33.2 pg (25.0-35.0); MCHC 29.7 g/dL (31.0-37.0); MCV 111.5 fL (80.0-100.0); Macrocytosis Marked; Platelet Count 968 k/uL (150-450); RDW 13.1 % (11.5-15.5); WBC 15.3 k/uL (3.8-10.6)
[2020-07-10 07:54] LABS: Glucose,Whole Blood 375 mg/dL (75-99)
[2020-07-10] MEDS: cloNIDine HCL 0.1 MG TAB PO SCH ×3 (08:30→20:03)
[2020-07-10] MEDS: HEPARIN SODIUM,PORCINE 5,000 UNIT/ML 1 ML VIAL SQ SCH ×2 (08:30→20:02)
[2020-07-10] MEDS: NICOTINE 14MG/24HR PATCH TRANSDERM SCH (08:31)
[2020-07-10] MEDS: PANTOPRAZOLE 40 MG TABLET PO SCH (08:31)
[2020-07-10] MEDS: THIAMINE 100 MG TAB PO SCH ×2 (08:31→17:35)
[2020-07-10] MEDS: GABAPENTIN 100 MG CAP PO SCH ×2 (08:31→20:03)
[2020-07-10] MEDS: CALCIUM CARB-VIT D 500MG-200UN 1 EACH TAB PO SCH ×3 (08:31→17:35)
[2020-07-10] MEDS: VALSARTAN 80 MG TAB PO SCH (08:31)
[2020-07-10] MEDS: INSULIN ASPART (NovoLOG) 100 UNIT/ML VIAL SQ SCH ×5 (08:32→21:39)
[2020-07-10] MEDS: INSULIN DETEMIR (LEVEMIR) 100 UNIT/ML SYR SQ SCH ×3 (08:34→21:40)
[2020-07-10 09:24] LABS: African American GFR (CKD) 92.4 (60.0-200.0); Anion Gap 10.7 mmol/L (4.00-12.00); Calcium 7.6 mg/dL (8.7-10.3); Carbon Dioxide 19.3 mmol/L (21.6-31.8); Non-African American GFR(CKD) 79.7 (60.0-200.0); Potassium 5.9 mmol/L (3.5-5.5)
[2020-07-10 10:14] LABS: Band Neutrophils % 1 %; Eosinophils # (M) 0.46 k/uL (0-0.7); Lymphocytes # (M) 1.84 k/uL (1.0-4.8); Monocytes # (M) 1.07 k/uL (0-1.0); Myelocytes # (M) 0.15 k/uL (0); Myelocytes % 1 %; Neutrophils % (M) 78 %; Nucleated Red Blood Cells 0 /100 WBC (0-0); Total Cells Counted 200
[2020-07-10] MEDS ORDERED: SODIUM POLYSTYRENE SULFONATE 15 GM/60 ML BOTTLE PO STA (11:06)
[2020-07-10 11:49] LABS: Glucose,Whole Blood 333 mg/dL (75-99)
--- NOTE | 2020-07-10 12:19 | P.PN ---
Subjective Progress Note Date: 07/10/20 Principal diagnosis: Right foot wound The patient was seen and evaluated at the bedside. He remains on IV antibiotics. He had no acute changes through the night. He was afebrile. He denies any pain to the right lower extremity. Right foot with dressing that is clean dry and intact. Objective - Vital Signs Vital signs: Vital Signs Temp 98.1 F 07/10/20 07:17 Pulse 102 H 07/10/20 07:17 Resp 16 07/10/20 07:17 BP 151/80 07/10/20 07:17 Pulse Ox 93 L 07/10/20 07:17 Intake & Output 07/09/20 07/10/20 07/10/20 18:59 06:59 18:59 Intake Total 25 1000 Balance 25 1000 Intake: IV 25 Oral 1000 Other: Voiding Method Bedside Commode Bedside Commode Bedside Commode # Voids 2 2 # Bowel Movements 2 - Exam General appearance: The patient is alert, oriented, in no acute distress. HET: Head is normocephalic and atraumatic. Pupils are equal and reactive. Oropharynx is clear without lesions. Neck: Supple without lymphadenopathy. Extremities: Right foot with dressing clean dry and intact. Palpable DP and PT pulse. Neurological: No focal deficits. Strength and sensation are grossly intact. - Labs CBC & Chem 7: 07/10/20 05:52 07/10/20 05:52 Labs: Abnormal Lab Results - Last 24 Hours (Table) 07/08/20 07/09/20 07/09/20 Range/Units 05:51 06:41 11:27 WBC (3.8-10.6) k/uL RBC (4.30-5.90) m/uL Hgb (13.0-17.5) gm/dL Hct (39.0-53.0) % MCV (80.0-100.0) fL MCHC (31.0-37.0) g/dL Plt Count (150-450) k/uL Macrocytosis BUN 6.0 L (9.0-27.0) mg/dL BUN/Creatinine Ratio 6.67 L (12.00-20.00) Ratio Glucose 34 L* 48 L* (70-110) mg/dL POC Glucose (mg/dL) 177 H (75-99) mg/dL Calcium 7.6 L (8.7-10.3) mg/dL 07/09/20 07/09/20 07/10/20 Range/Units 16:23 20:26 02:42 WBC (3.8-10.6) k/uL RBC (4.30-5.90) m/uL Hgb (13.0-17.5) gm/dL Hct (39.0-53.0) % MCV (80.0-100.0) fL MCHC (31.0-37.0) g/dL Plt Count (150-450) k/uL Macrocytosis BUN (9.0-27.0) mg/dL BUN/Creatinine Ratio (12.00-20.00) Ratio Glucose (70-110) mg/dL POC Glucose (mg/dL) 337 H 389 H 340 H (75-99) mg/dL Calcium (8.7-10.3) mg/dL 07/10/20 07/10/20 Range/Units 05:52 07:53 WBC 15.3 H (3.8-10.6) k/uL RBC 2.60 L (4.30-5.90) m/uL Hgb 8.6 L (13.0-17.5) gm/dL Hct 29.0 L (39.0-53.0) % MCV 111.5 H (80.0-100.0) fL MCHC 29.7 L (31.0-37.0) g/dL Plt Count 968 H (150-450) k/uL Macrocytosis Marked A BUN (9.0-27.0) mg/dL BUN/Creatinine Ratio (12.00-20.00) Ratio Glucose (70-110) mg/dL POC Glucose (mg/dL) 375 H (75-99) mg/dL Calcium (8.7-10.3) mg/dL Microbiology - Last 24 Hours (Table) 07/05/20 06:30 Blood Culture - Preliminary Blood No Growth after 120 hours 07/06/20 13:09 Gram Stain - Preliminary Foot - Right Tissue Culture - Preliminary Presumptive MRSA 07/04/20 18:00 Blood Culture - Preliminary Blood No Growth after 120 hours 07/06/20 13:09 Anaerobic Culture - Preliminary Foot - Right Assessment and Plan Assessment: 1. Leukocytosis 2. Diabetic foot infection 3. Plantar ulceration of the right foot with tracking, status post debridement 4. Alcohol abuse 5. Peripheral neuropathy 6. Tobacco abuse Plan: Continue with IV antibiotics per recommendation of infectious disease. He underwent PICC line placement yesterday for discharge to rehab. Patient should follow-up with wound care center and vascular surgery. Continue with daily wet-to-dry dressing change. The impression and plan of care has been dictated as directed. Dr. Tobias I performed a history and examination of this patient, discussed the same with the dictator. I agree with the dictator's note ,documented as a scribe. Any additional findings or plans will be noted.
[2020-07-10] MEDS: MULTIVITAMINS, THERA 1 EACH TAB PO SCH (12:29)
[2020-07-10] MEDS ORDERED: VANCOMYCIN TROUGH DUE 1 EACH MISC MISCELLANE ONE (14:00)
[2020-07-10] MEDS ORDERED: FUROSEMIDE 10 MG/ML 4 ML VIAL IV STA (15:01)
--- NOTE | 2020-07-10 16:44 | P.PN ---
Subjective Patient is admitted for diabetic foot ulcer and also myelitis and patient decided PICC line will be discharged to [facility]CF breath although patient elevated potassium because of which I'm holding of APARNA inhibitor on exam patient appears to have crackles bilaterally reviewed the CT which is showing pulmonary edema patient will be given a dose of Lasix, Kayexalate Will repeat basic metabolic profile again tomorrow APARNA inhibitor but will be held although he said APARNA inhibitor today it is of which show his potassium may go up again tomorrow. Patient has MRSA in the wounds and status post surgical debridement and patient has bilateral leg wounds. Patient has Citrobacter in the wounds as well. Patient also myelitis is in the right foot. Constitutional: Denied any fatigue denied any fever. Cardio vascular: denied any chest pain, palpitations Gastrointestinal denied any nausea vomiting Pulmonary: Denied any shortness of breath cough Neurologic denied any new focal deficits All inpatient medications were reviewed and appropriate changes in these medications as dictated in the interval history and assessment and plan. Objective - Vital Signs Vital signs: Vital Signs Temp 98.1 F 07/10/20 07:17 Pulse 102 H 07/10/20 07:17 Resp 16 07/10/20 07:17 BP 151/80 07/10/20 07:17 Pulse Ox 93 L 07/10/20 07:17 Intake & Output 07/09/20 07/10/20 07/10/20 18:59 06:59 18:59 Intake Total 25 1000 Balance 25 1000 Intake: IV 25 Oral 1000 Other: Voiding Method Bedside Commode Bedside Commode Bedside Commode # Voids 2 2 8 # Bowel Movements 2 4 - Exam PHYSICAL EXAMINATION: GENERAL: The patient is alert and oriented x3, not in any acute distress. Well developed, well nourished. HEENT: Pupils are round and equally reacting to light. EOMI. No scleral icterus. No conjunctival pallor. Normocephalic, atraumatic. No pharyngeal erythema. No thyromegaly. CARDIOVASCULAR: S1 and S2 present. No murmurs, rubs, or gallops. PULMONARY: Bilateral diffuse crackles. ABDOMEN: Soft, nontender, nondistended, normoactive bowel sounds. No palpable organomegaly. MUSCULOSKELETAL: No joint swelling or deformity. EXTREMITIES: No cyanosis, clubbing, or pedal edema. NEUROLOGICAL: Gross neurological examination did not reveal any focal deficits. SKIN: She and has ulcers stage IV in the right foot as well as left foot right foot appeared to be source of infection and has a osteomyelitis - Labs CBC & Chem 7: 07/10/20 05:52 07/10/20 05:52 Labs: Abnormal Lab Results - Last 24 Hours (Table) 07/09/20 07/10/20 07/10/20 Range/Units 20:26 02:42 05:52 WBC 15.3 H (3.8-10.6) k/uL RBC 2.60 L (4.30-5.90) m/uL Hgb 8.6 L (13.0-17.5) gm/dL Hct 29.0 L (39.0-53.0) % MCV 111.5 H (80.0-100.0) fL MCHC 29.7 L (31.0-37.0) g/dL Plt Count 968 H (150-450) k/uL Neutrophils # (Manual) 12.00 H (1.3-7.7) k/uL Monocytes # (Manual) 1.07 H (0-1.0) k/uL Myelocytes # (Manual) 0.15 H (0) k/uL Macrocytosis Marked A Sodium (135-145) mmol/L Potassium (3.5-5.5) mmol/L Carbon Dioxide (21.6-31.8) mmol/L BUN/Creatinine Ratio (12.00-20.00) Ratio Glucose (70-110) mg/dL POC Glucose (mg/dL) 389 H 340 H (75-99) mg/dL Calcium (8.7-10.3) mg/dL 07/10/20 07/10/20 07/10/20 Range/Units 05:52 07:53 11:48 WBC (3.8-10.6) k/uL RBC (4.30-5.90) m/uL Hgb (13.0-17.5) gm/dL Hct (39.0-53.0) % MCV (80.0-100.0) fL MCHC (31.0-37.0) g/dL Plt Count (150-450) k/uL Neutrophils # (Manual) (1.3-7.7) k/uL Monocytes # (Manual) (0-1.0) k/uL Myelocytes # (Manual) (0) k/uL Macrocytosis Sodium 133 L (135-145) mmol/L Potassium 5.9 H (3.5-5.5) mmol/L Carbon Dioxide 19.3 L (21.6-31.8) mmol/L BUN/Creatinine Ratio 9.00 L (12.00-20.00) Ratio Glucose 315 H (70-110) mg/dL POC Glucose (mg/dL) 375 H 333 H (75-99) mg/dL Calcium 7.6 L (8.7-10.3) mg/dL Microbiology - Last 24 Hours (Table) 07/06/20 13:09 Anaerobic Culture - Preliminary Foot - Right 07/05/20 06:30 Blood Culture - Preliminary Blood No Growth after 120 hours 07/06/20 13:09 Gram Stain - Preliminary Foot - Right Tissue Culture - Preliminary Presumptive MRSA 07/04/20 18:00 Blood Culture - Preliminary Blood No Growth after 120 hours Assessment and Plan Plan: - diabetic foot ulcer with possible osteomyelitis of the right foot with MRSA status post surgical debridement and patient will be discharged on IV vancomycin and oral Cipro for Citrobacter -Disorders -History of pulmonary fibrosis -Hyperkalemia: secondary to angiotensin receptor nieves which will be discontinued and patient will be given a dose of Kayexalate -Type 2 diabetes mellitus uncontrolled blood sugars: Patient the is declining to take 30 units of long-acting insulin at the same time patient will be started on 10 units twice a day of long-acting insulin along with his home dose of pre-meal insulin continue to monitor the blood sugars. -Possible congestive heart failure chronic diastolic dysfunction with acute exacerbation alert and echocardiogram patient will be given a dose of Lasix
[2020-07-10 16:52] LABS: Glucose,Whole Blood 307 mg/dL (75-99)
[2020-07-10] MEDS: metroNIDAZOLE 500 MG TAB PO SCH ×2 (17:35→20:03)
[2020-07-10] MEDS: CIPROFLOXACIN HCL 500 MG TAB PO SCH (20:02)
[2020-07-10] MEDS: LATANOPROST 0.005% OPHTH DROPS 2.5 ML BTL BOTH EYES SCH (20:04)
[2020-07-10 21:34] LABS: Glucose,Whole Blood 133 mg/dL (75-99)
--- NOTE | 2020-07-10 23:08 | PN ---
PROGRESS NOTE DATE OF SERVICE: 07/10/2020 REASON FOR FOLLOWUP: Right diabetic foot wound, underlying osteomyelitis. INTERVAL HISTORY: The patient is currently afebrile. The patient is breathing comfortably. Denies having any chest pain or shortness of breath or cough. No nausea. No vomiting. No abdominal pain or any worsening pain to the right foot. PHYSICAL EXAMINATION: Blood pressure 119/67, pulse of 96, temperature 98.5. He is 94% on room air. General description is a middle-aged male lying in bed in no distress. RESPIRATORY SYSTEM: Unlabored breathing. Clear to auscultation anteriorly. HEART: S1, S2. Regular rate and rhythm. ABDOMEN: Soft. No tenderness. Right foot wound base looks clean. No significant swelling, redness or any drainage. LABS: Hemoglobin is 8.6, white count 15.3, BUN of 9, creatinine 1.0. Vancomycin trough is 21.2. DIAGNOSTIC IMPRESSION AND PLAN: Patient with methicillin-resistant Staphylococcus aeruginosa bacteremia secondary to her right diabetic foot infection with underlying osteomyelitis. Local culture with MRSA and Citrobacter. The patient is on appropriate antibiotics, still having worsening white count. No significant changes noted in the right foot wound on clinical examination. We will continue with the vancomycin. Dose needs to be cut back to keep the trough around 15. Will discontinue Unasyn and add Cipro and Flagyl and repeat CBC tomorrow. Continue with supportive care. MMODL / IJN: [id number] /
[2020-07-11 02:00] LABS: Glucose,Whole Blood 125 mg/dL (75-99)
[2020-07-11] MEDS: VANCOMYCIN 1,000 MG in SODIUM CHLORIDE 0.9% 250 ML IVPB SCH ×2 (04:30→14:26)
[2020-07-11 06:35] LABS: HCT 27.3 % (39.0-53.0); HGB 8.6 gm/dL (13.0-17.5); MCH 33.9 pg (25.0-35.0); MCHC 31.3 g/dL (31.0-37.0); MCV 108.2 fL (80.0-100.0); Macrocytosis Moderate; Platelet Count 964 k/uL (150-450); RBC 2.53 m/uL (4.30-5.90); RDW 12.8 % (11.5-15.5); WBC 15.9 k/uL (3.8-10.6)
[2020-07-11 06:52] LABS: Glucose,Whole Blood 65 mg/dL (75-99)
[2020-07-11 07:18] LABS: Glucose,Whole Blood 127 mg/dL (75-99)
[2020-07-11] MEDS: ACETAMINOPHEN TAB 325 MG TAB PO PRN ×2 (09:01→16:18)
[2020-07-11] MEDS: PANTOPRAZOLE 40 MG TABLET PO SCH (09:02)
[2020-07-11] MEDS: GABAPENTIN 100 MG CAP PO SCH ×2 (09:02→21:39)
[2020-07-11] MEDS: cloNIDine HCL 0.1 MG TAB PO SCH ×3 (09:02→21:40)
[2020-07-11] MEDS: MULTIVITAMINS, THERA 1 EACH TAB PO SCH (09:02)
[2020-07-11] MEDS: THIAMINE 100 MG TAB PO SCH ×2 (09:02→16:56)
[2020-07-11] MEDS: CALCIUM CARB-VIT D 500MG-200UN 1 EACH TAB PO SCH ×3 (09:02→16:56)
[2020-07-11] MEDS: INSULIN ASPART (NovoLOG) 100 UNIT/ML VIAL SQ SCH ×7 (09:02→21:41)
[2020-07-11] MEDS: metroNIDAZOLE 500 MG TAB PO SCH ×3 (09:02→21:39)
[2020-07-11] MEDS: CIPROFLOXACIN HCL 500 MG TAB PO SCH ×2 (09:02→21:38)
[2020-07-11] MEDS: INSULIN DETEMIR (LEVEMIR) 100 UNIT/ML SYR SQ SCH ×2 (09:03→21:40)
[2020-07-11] MEDS: HEPARIN SODIUM,PORCINE 5,000 UNIT/ML 1 ML VIAL SQ SCH ×2 (09:03→21:39)
[2020-07-11] MEDS: NICOTINE 14MG/24HR PATCH TRANSDERM SCH (09:04)
[2020-07-11 10:05] LABS: Anion Gap 10.6 mmol/L (4.00-12.00); BUN/Creat Ratio 11.11 Ratio (12.00-20.00); Calcium 8.4 mg/dL (8.7-10.3); Carbon Dioxide 24.4 mmol/L (21.6-31.8); Non-African American GFR(CKD) 90.6 (60.0-200.0); Potassium 4.4 mmol/L (3.5-5.5)
[2020-07-11] MEDS ORDERED: HYDROcodone/APAP 7.5-325MG 1 EACH TAB PO PRN ×2 (10:27→10:28)
[2020-07-11 11:16] LABS: Glucose,Whole Blood 244 mg/dL (75-99)
--- NOTE | 2020-07-11 13:52 | ECHOF ---
Referral Reason:Congestive heart failure MEASUREMENTS -------- HEIGHT: 182.9 cm WEIGHT: 68.0 kg BP: 152/79 RVIDd: 2.8 cm (< 3.3) IVSd: 1.2 cm (0.6 - 1.1) LVIDd: 4.6 cm (3.9 - 5.3) LVPWd: 1.2 cm (0.6 - 1.1) IVSs: 1.6 cm LVIDs: 3.2 cm LVPWs: 1.7 cm LA Diam: 3.3 cm (2.7 - 3.8) Ao Diam: 3.6 cm (2.0 - 3.7) AV Cusp: 2.6 cm (1.5 - 2.6) MV EXCURSION: 25.054 mm (> 18.000) MV EF SLOPE: 197 mm/s (70 - 150) EPSS: 0.2 cm MV E Сергей: 0.98 m/s MV DecT: 145 ms MV A Сергей: 0.92 m/s MV E/A Ratio: 1.06 RAP: 5.00 mmHg RVSP: 33.95 mmHg FINDINGS -------- Resting tachycardia (HR>100bpm). This was a technically adequate study. The left ventricular size is normal. There is borderline concentric left ventricular hypertrophy. Overall left ventricular systolic function is normal with, an EF between 60 - 65 %. The right ventricle is normal in size. The left atrium is normal in size. The right atrium is normal in size. Interatrial and interventricular septum intact. The aortic valve is trileaflet and appears structurally normal. The mitral valve is normal. Mild tricuspid regurgitation present. The right ventricular systolic pressure, as measured by Doppl er, is 33.95mmHg. There is no pulmonic regurgitation present. The aortic root size is normal. Normal inferior vena cava with normal inspiratory collapse consistent with estimated right atrial pre ssure of 5 mmHg. There is no pericardial effusion. Pleural Effusion with Fibrin. CONCLUSIONS -------- 1. Resting tachycardia (HR>100bpm). 2. The left ventricular size is normal. 3. There is borderline concentric left ventricular hypertrophy. 4. Overall left ventricular systolic function is normal with, an EF between 60 - 65 %. 5. The aortic valve is trileaflet and appears structurally normal. 6. Mild tricuspid regurgitation present. 7. The right ventricular systolic pressure, as measured by Doppler, is 33.95mmHg. 8. There is no pericardial effusion. 9. Pleural Effusion with Fibrin. HOUSE DESIGNER: Sarah Alvarado RDCS
--- NOTE | 2020-07-11 15:59 | P.PN ---
Subjective Patient is admitted for diabetic foot ulcer and also myelitis and patient decided PICC line will be discharged to ECF breath although patient elevated potassium because of which I'm holding of APARNA inhibitor on exam patient appears to have crackles bilaterally reviewed the CT which is showing pulmonary edema patient will be given a dose of Lasix, Kayexalate Will repeat basic metabolic profile again tomorrow APARNA inhibitor but will be held although he said APARNA inhibitor today it is of which show his potassium may go up again tomorrow. Patient has MRSA in the wounds and status post surgical debridement and patient has bilateral leg wounds. Patient has Citrobacter in the wounds as well. Patient also myelitis is in the right foot. 07/11/2020 Patient's sodium improved respiratory status improved but still can count went up today. Constitutional: Denied any fatigue denied any fever. Cardio vascular: denied any chest pain, palpitations Gastrointestinal denied any nausea vomiting Pulmonary: Denied any shortness of breath cough Neurologic denied any new focal deficits All inpatient medications were reviewed and appropriate changes in these medications as dictated in the interval history and assessment and plan. Objective - Vital Signs Vital signs: Vital Signs Temp 98.8 F 07/11/20 14:24 Pulse 95 07/11/20 14:24 Resp 17 07/11/20 14:24 BP 143/71 07/11/20 14:24 Pulse Ox 97 07/11/20 14:24 Intake & Output 07/10/20 07/11/20 07/11/20 18:59 06:59 18:59 Intake Total 480 Balance 480 Intake: Oral 480 Other: Voiding Method Bedside Commode Bedside Commode # Voids 8 1 4 # Bowel Movements 4 2 - Exam PHYSICAL EXAMINATION: GENERAL: The patient is alert and oriented x3, not in any acute distress. Well developed, well nourished. HEENT: Pupils are round and equally reacting to light. EOMI. No scleral icterus. No conjunctival pallor. Normocephalic, atraumatic. No pharyngeal erythema. No thyromegaly. CARDIOVASCULAR: S1 and S2 present. No murmurs, rubs, or gallops. PULMONARY: Bilateral diffuse crackles. ABDOMEN: Soft, nontender, nondistended, normoactive bowel sounds. No palpable organomegaly. MUSCULOSKELETAL: No joint swelling or deformity. EXTREMITIES: No cyanosis, clubbing, or pedal edema. NEUROLOGICAL: Gross neurological examination did not reveal any focal deficits. SKIN: She and has ulcers stage IV in the right foot as well as left foot right foot appeared to be source of infection and has a osteomyelitis - Labs CBC & Chem 7: 07/11/20 05:33 07/11/20 05:33 Labs: Abnormal Lab Results - Last 24 Hours (Table) 07/10/20 07/10/20 07/11/20 Range/Units 16:51 21:33 01:59 WBC (3.8-10.6) k/uL RBC (4.30-5.90) m/uL Hgb (13.0-17.5) gm/dL Hct (39.0-53.0) % MCV (80.0-100.0) fL Plt Count (150-450) k/uL BUN/Creatinine Ratio (12.00-20.00) Ratio Glucose (70-110) mg/dL POC Glucose (mg/dL) 307 H 133 H 125 H (75-99) mg/dL Calcium (8.7-10.3) mg/dL 07/11/20 07/11/20 07/11/20 Range/Units 05:33 05:33 06:50 WBC 15.9 H (3.8-10.6) k/uL RBC 2.53 L (4.30-5.90) m/uL Hgb 8.6 L (13.0-17.5) gm/dL Hct 27.3 L (39.0-53.0) % MCV 108.2 H (80.0-100.0) fL Plt Count 964 H (150-450) k/uL BUN/Creatinine Ratio 11.11 L (12.00-20.00) Ratio Glucose 50 L (70-110) mg/dL POC Glucose (mg/dL) 65 L (75-99) mg/dL Calcium 8.4 L (8.7-10.3) mg/dL 07/11/20 07/11/20 Range/Units 07:16 11:13 WBC (3.8-10.6) k/uL RBC (4.30-5.90) m/uL Hgb (13.0-17.5) gm/dL Hct (39.0-53.0) % MCV (80.0-100.0) fL Plt Count (150-450) k/uL BUN/Creatinine Ratio (12.00-20.00) Ratio Glucose (70-110) mg/dL POC Glucose (mg/dL) 127 H 244 H (75-99) mg/dL Calcium (8.7-10.3) mg/dL Microbiology - Last 24 Hours (Table) 07/06/20 13:09 Gram Stain - Final Foot - Right Tissue Culture - Final Methicillin resist S. aureus 07/05/20 06:30 Blood Culture - Final Blood No Growth after 144 hours 07/04/20 18:00 Blood Culture - Final Blood No Growth after 144 hours 07/06/20 13:09 Anaerobic Culture - Preliminary Foot - Right Assessment and Plan Plan: - diabetic foot ulcer with possible osteomyelitis of the right foot with MRSA status post surgical debridement and patient will be discharged on IV vancomycin and oral Cipro for Citrobacter -Disorders -History of pulmonary fibrosis -Hyperkalemia: secondary to angiotensin receptor nieves which will be discontinued and patient will be given a dose of Kayexalate improved potassium patient will be started on low-dose of angiotensin receptor nieves -Type 2 diabetes mellitus uncontrolled blood sugars: Patient's blood sugars are is expected to be better controlled now with the change to insulin regimen -Possible congestive heart failure chronic diastolic dysfunction with acute exacerbation alert and echocardiogram patient will be given a dose of Lasix his did have respiratory status significant improved today
[2020-07-11 16:19] LABS: Glucose,Whole Blood 179 mg/dL (75-99)
[2020-07-11 20:50] LABS: Glucose,Whole Blood 183 mg/dL (75-99)
[2020-07-11] MEDS: LATANOPROST 0.005% OPHTH DROPS 2.5 ML BTL BOTH EYES SCH (21:40)
[2020-07-12 02:03] LABS: Glucose,Whole Blood 91 mg/dL (75-99)
[2020-07-12] MEDS: VANCOMYCIN 1,000 MG in SODIUM CHLORIDE 0.9% 250 ML IVPB SCH ×2 (03:40→15:36)
[2020-07-12] MEDS: ACETAMINOPHEN TAB 325 MG TAB PO PRN ×2 (05:28→12:26)
[2020-07-12 06:52] LABS: Glucose,Whole Blood 62 mg/dL (75-99)
[2020-07-12 07:13] LABS: Glucose,Whole Blood 98 mg/dL (75-99)
[2020-07-12] MEDS: INSULIN ASPART (NovoLOG) 100 UNIT/ML VIAL SQ SCH ×7 (07:16→20:38)
[2020-07-12] MEDS: INSULIN DETEMIR (LEVEMIR) 100 UNIT/ML SYR SQ SCH ×2 (07:41→20:38)
[2020-07-12] MEDS: CIPROFLOXACIN HCL 500 MG TAB PO SCH ×2 (07:42→20:37)
[2020-07-12] MEDS: metroNIDAZOLE 500 MG TAB PO SCH ×3 (07:42→20:37)
[2020-07-12] MEDS: GABAPENTIN 100 MG CAP PO SCH ×2 (07:42→20:37)
[2020-07-12] MEDS: NICOTINE 14MG/24HR PATCH TRANSDERM SCH (07:42)
[2020-07-12] MEDS: CALCIUM CARB-VIT D 500MG-200UN 1 EACH TAB PO SCH ×3 (07:42→17:26)
[2020-07-12] MEDS: PANTOPRAZOLE 40 MG TABLET PO SCH (07:42)
[2020-07-12] MEDS: HEPARIN SODIUM,PORCINE 5,000 UNIT/ML 1 ML VIAL SQ SCH ×2 (07:42→20:38)
[2020-07-12] MEDS: cloNIDine HCL 0.1 MG TAB PO SCH ×3 (07:43→20:37)
[2020-07-12] MEDS: THIAMINE 100 MG TAB PO SCH ×2 (07:43→17:26)
[2020-07-12] MEDS: MULTIVITAMINS, THERA 1 EACH TAB PO SCH (07:43)
--- NOTE | 2020-07-12 10:01 | P.PN ---
Subjective Progress Note Date: 07/12/20 Principal diagnosis: 65-year-old male resting comfortably in bed. Admitted to the hospital for diabetic foot ulcer, myelitis. Patient had an episode of hyperkalemiares olved with Lasix, Kayexalate. Continue to hold APARNA inhibitor. PICC line in place for IV antibiotics and possible transfer to extended care facility. Objective - Vital Signs Vital signs: Vital Signs Temp 98.5 F 07/12/20 07:00 Pulse 91 07/12/20 07:00 Resp 18 07/12/20 07:00 BP 144/77 07/12/20 07:00 Pulse Ox 93 L 07/12/20 07:00 Intake & Output 07/11/20 07/12/20 07/12/20 18:59 06:59 18:59 Other: Voiding Method Bedside Commode # Voids 4 2 # Bowel Movements 2 1 - Constitutional General appearance: Present: cooperative, no acute distress - EENT Eyes: Present: EOMI, PERRLA ENT: Present: normal oropharynx Ears: bilateral: normal - Neck Neck: Present: normal ROM - Respiratory Respiratory: bilateral: rales (Bilateral posterior bases) - Cardiovascular Rhythm: regular Heart sounds: normal: S1, S2 - Gastrointestinal General gastrointestinal: Present: normal bowel sounds - Integumentary Integumentary Comment(s): Right foot diabetic ulcer, stages of healing with granulation Integumentary: Present: ulcer - Neurologic Neurologic: Present: CNII-XII intact - Musculoskeletal Musculoskeletal: Present: generalized weakness - Psychiatric Psychiatric: Present: A&O x's 3, appropriate affect, intact judgment & insight - Labs CBC & Chem 7: 07/11/20 05:33 07/11/20 05:33 Labs: Abnormal Lab Results - Last 24 Hours (Table) 07/11/20 07/11/20 07/11/20 Range/Units 05:33 11:13 16:18 BUN/Creatinine Ratio 11.11 L (12.00-20.00) Ratio Glucose 50 L (70-110) mg/dL POC Glucose (mg/dL) 244 H 179 H (75-99) mg/dL Calcium 8.4 L (8.7-10.3) mg/dL 07/11/20 07/12/20 Range/Units 20:47 06:46 BUN/Creatinine Ratio (12.00-20.00) Ratio Glucose (70-110) mg/dL POC Glucose (mg/dL) 183 H 62 L (75-99) mg/dL Calcium (8.7-10.3) mg/dL Microbiology - Last 24 Hours (Table) 07/06/20 13:09 Gram Stain - Final Foot - Right Tissue Culture - Final Methicillin resist S. aureus 07/05/20 06:30 Blood Culture - Final Blood No Growth after 144 hours Assessment and Plan Assessment: Diabetic foot ulcer with possible osteomyelitis of right foot with MRSA status post surgical debridement; patient will be discharged on IV vancomycin, and Cipro and Flagyl. Type 2 diabetes mellitus controlled History of pulmonary fibrosis Hyperkalemia resolved (1) Diabetic ulcer of right foot Current Visit: Yes Status: Acute Code(s): E11.621 - TYPE 2 DIABETES MELLITUS WITH FOOT ULCER; L97.519 - NON-PRS CHRONIC ULCER OTH PRT RIGHT FOOT W UNSP SEVERITY SNOMED Code(s): 687981481 (2) Foot osteomyelitis, right Current Visit: Yes Status: Acute Code(s): M86.9 - OSTEOMYELITIS, UNSPECIFIED SNOMED Code(s): 9612677511095046 (3) Gram-positive bacteremia Current Visit: Yes Status: Acute Code(s): R78.81 - BACTEREMIA SNOMED Code(s): 041743986233 Plan: Plan Continue IV antibiotics for diabetic foot ulcer Continue Cipro and Flagyl for citrobacter Continue consultation with infectious disease. Awaiting CBC, and BMP results. Awaiting approval from insurance company to transfer to extended care facility for IV antibiotics through PICC line. Hopeful discharge today. Time with Patient: Greater than 30
[2020-07-12 10:07] LABS: HCT 26.3 % (39.0-53.0); HGB 8.3 gm/dL (13.0-17.5); Hypochromasia Slight; MCH 34.2 pg (25.0-35.0); MCHC 31.5 g/dL (31.0-37.0); MCV 108.8 fL (80.0-100.0); Macrocytosis Moderate; Platelet Count 958 k/uL (150-450); RBC 2.41 m/uL (4.30-5.90); RDW 13.3 % (11.5-15.5); WBC 15.1 k/uL (3.8-10.6)
[2020-07-12 11:30] LABS: Glucose,Whole Blood 100 mg/dL (75-99)
[2020-07-12] MEDS ORDERED: VANCOMYCIN TROUGH DUE 1 EACH MISC MISCELLANE ONE (14:00)
[2020-07-12] MEDS ORDERED: BENZOCAINE/MENTHOL LOZENG 1 EACH LOZENGE MUCOUS MEM PRN (14:10)
[2020-07-12 15:39] LABS: African American GFR (CKD) 92.4 (60.0-200.0); Anion Gap 7.4 mmol/L (4.00-12.00); Calcium 8.4 mg/dL (8.7-10.3); Carbon Dioxide 25.6 mmol/L (21.6-31.8); Non-African American GFR(CKD) 79.7 (60.0-200.0); Potassium 4.6 mmol/L (3.5-5.5)
[2020-07-12 16:42] LABS: Glucose,Whole Blood 122 mg/dL (75-99)
--- NOTE | 2020-07-12 19:56 | P.PN ---
Progress Note - Text Progress Note Date: 07/12/20 [id number]/peer/peer interview performed with insurance company physician. Health insurance approved shelter facility stay for 5 week. Awaiting fax from insurance company to discharge patient to shelter facility.
[2020-07-12 20:34] LABS: Glucose,Whole Blood 141 mg/dL (75-99)
[2020-07-12] MEDS: LATANOPROST 0.005% OPHTH DROPS 2.5 ML BTL BOTH EYES SCH (20:38)
[2020-07-13] MEDS: VANCOMYCIN 1,000 MG in SODIUM CHLORIDE 0.9% 250 ML IVPB SCH (02:55)
[2020-07-13 02:56] LABS: Glucose,Whole Blood 89 mg/dL (75-99)
[2020-07-13 06:41] LABS: Glucose,Whole Blood 154 mg/dL (75-99)
[2020-07-13 07:38] VITALS: BP 147/79; PULSE 93; RESP 18; TEMP 98.4
--- NOTE | 2020-07-13 07:55 | XR ---
EXAMINATION TYPE: XR chest 2V DATE OF EXAM: 07/13/2020 COMPARISON: 07/08/2020 HISTORY: 65 year-old male shortness of breath TECHNIQUE: PA and lateral views FINDINGS: Left PICC tip at the cavoatrial junction. Heart normal size. Aorta and pulmonary vasculature are with in normal limits. There are small effusions seen on the lateral view. Hyperinflation. IMPRESSION: Suspect underlying COPD. Small pleural effusions with adjacent atelectasis and/or consolidation demon strated on the lateral view.
[2020-07-13] MEDS: INSULIN ASPART (NovoLOG) 100 UNIT/ML VIAL SQ SCH ×2 (07:58→08:10)
[2020-07-13] MEDS: INSULIN DETEMIR (LEVEMIR) 100 UNIT/ML SYR SQ SCH (08:10)
[2020-07-13] MEDS: HEPARIN SODIUM,PORCINE 5,000 UNIT/ML 1 ML VIAL SQ SCH (08:11)
[2020-07-13] MEDS: NICOTINE 14MG/24HR PATCH TRANSDERM SCH (08:11)
[2020-07-13] MEDS: THIAMINE 100 MG TAB PO SCH (08:11)
[2020-07-13] MEDS: metroNIDAZOLE 500 MG TAB PO SCH (08:11)
[2020-07-13] MEDS: CALCIUM CARB-VIT D 500MG-200UN 1 EACH TAB PO SCH (08:12)
[2020-07-13] MEDS: PANTOPRAZOLE 40 MG TABLET PO SCH (08:12)
[2020-07-13] MEDS: CIPROFLOXACIN HCL 500 MG TAB PO SCH (08:12)
[2020-07-13] MEDS: MULTIVITAMINS, THERA 1 EACH TAB PO SCH (08:12)
[2020-07-13] MEDS: GABAPENTIN 100 MG CAP PO SCH (08:12)
[2020-07-13] MEDS: cloNIDine HCL 0.1 MG TAB PO SCH (08:12)
--- NOTE | 2020-07-13 09:44 | P.DS ---
Providers Date of admission: 07/03/20 14:51 Expected date of discharge: 07/13/20 (intermediate facility) Attending physician: Sammy Garrido Consults: 07/03/20 14:52 Consult Physician Urgent Consulting Provider: Caden Wade Consult Reason/Comments: Diabetic foot ulcer Do you want consulting provider notified?: Yes 07/03/20 15:25 Consult Physician Urgent Consulting Provider: Tamie Costello Consult Reason/Comments: Diabetic foot ulcer, possible gas-forming Do you want consulting provider notified?: Yes Primary care physician: Sammy Garrido - Discharge Diagnosis(es) (1) Diabetic ulcer of right foot Current Visit: Yes Status: Acute (2) Foot osteomyelitis, right Current Visit: Yes Status: Acute (3) Gram-positive bacteremia Current Visit: Yes Status: Acute Hospital Course: 65-year-old male presented to the emergency department with chief complaint of right foot pain. Patient complained of pain of 1-2 days at that time. Patient developed a diabetic right foot ulcer. Patient was admitted to the hospital for aggressive antibiotic therapy with post surgical debridement. Right foot tissue culture revealed MRSA and Citrobacter braki from wound culture. During hospital stay with recommendation of infectious disease with extensive wound to right foot IV vancomycin initiated and will need to be continued for 5 weeks for MRSA. Patient required Cipro and Flagyl for Citrobacter braki. Due to patient's medical conditions requiring IV antibiotics with aggressive therapy [facility] 5 week duration. Assessment: Diabetic foot ulcer with possible osteomyelitis of right foot with MRSA status post surgical debridement Type 2 diabetes mellitus controlled History of pulmonary fibrosis Hyperkalemia resolved Gram-positive bacteremia Anemia macrocytic History of EtOH abuse History of acute delirium tremors Hyponatremia Hyperlipidemia Hypertension Generalized weakness due to bacteremia Health Concerns: Significant health concerns due to right foot open diabetic ulcer with positive MRSA and bacteremia. Patient generalized weakness due to bacteremia difficulty with ambulation. Requiring aggressive antibiotic therapy and wound care therapy Patient Condition at Discharge: Serious Plan - Discharge Summary Discharge Rx Participant: No New Discharge Prescriptions: New cloNIDine HCL [Catapres] 0.1 mg PO BID #60 tab Folic Acid 1 mg PO DAILY #30 tablet Multivitamins, Thera [Multivitamin] 1 tab PO DAILY #30 tablet Calcium Carb-Vit D 500Mg-200Un [Oscal 500+D] 1 each PO TID-W/MEALS #90 tab Acetaminophen Tab [Tylenol Tab] 500 mg PO Q6H PRN #30 tablet PRN Reason: Pain Benzocaine/Menthol Lozeng [Cepacol lozenge] 1 each MUCOUS MEM Q6HR PRN #14 lozenge PRN Reason: Cough Ciprofloxacin HCl [Cipro] 500 mg PO BID #14 tab metroNIDAZOLE [Flagyl] 500 mg PO TID #21 tab Nicotine 14Mg/24Hr Patch [Habitrol] 1 patch TRANSDERM DAILY #7 patch Multivitamins, Thera [Multivitamin (formulary)] 1 each PO DAILY@1200 tab Vancomycin 1,000 mg IVPB Q12H #14 vial Thiamine [Vitamin B-1] 100 mg PO BID-W/MEALS tab Continue Latanoprost [Xalatan 0.005%] 1 drop BOTH EYES HS INSULIN LISPRO (humaLOG) [humaLOG] 8 units SQ AC-TID Valsartan [Diovan] 80 mg PO DAILY Famotidine/Ca Carb/Mag Hydrox [Pepcid Complete Tablet Chew] 1 tab PO DAILY Acetaminophen Tab [Tylenol] 1,000 mg PO Q6HR PRN PRN Reason: Pain Or Fever > 100.5 metFORMIN HCL [Glucophage] 500 mg PO BID Insulin Glargine,Hum.rec.anlog [Basaglar Kwikpen U-100] 12 unit SQ DAILY Gabapentin [Neurontin] 100 mg PO BID #14 cap Discharge Medication List INSULIN LISPRO (humaLOG) [humaLOG] 8 units SQ AC-TID 02/23/17 [History] Latanoprost [Xalatan 0.005%] 1 drop BOTH EYES HS 02/23/17 [History] Valsartan [Diovan] 80 mg PO DAILY 02/23/17 [History] Acetaminophen Tab [Tylenol] 1,000 mg PO Q6HR PRN 07/03/20 [History] Famotidine/Ca Carb/Mag Hydrox [Pepcid Complete Tablet Chew] 1 tab PO DAILY 07/03/20 [History] Insulin Glargine,Hum.rec.anlog [Basaglar Kwikpen U-100] 12 unit SQ DAILY 07/03/20 [History] metFORMIN HCL [Glucophage] 500 mg PO BID 07/03/20 [History] Acetaminophen Tab [Tylenol Tab] 500 mg PO Q6H PRN #30 tablet 07/09/20 [Rx] Calcium Carb-Vit D 500Mg-200Un [Oscal 500+D] 1 each PO TID-W/MEALS #90 tab 07/09/20 [Rx] Folic Acid 1 mg PO DAILY #30 tablet 07/09/20 [Rx] Multivitamins, Thera [Multivitamin] 1 tab PO DAILY #30 tablet 07/09/20 [Rx] cloNIDine HCL [Catapres] 0.1 mg PO BID #60 tab 07/09/20 [Rx] Benzocaine/Menthol Lozeng [Cepacol lozenge] 1 each MUCOUS MEM Q6HR PRN #14 lozenge 07/13/20 [Rx] Ciprofloxacin HCl [Cipro] 500 mg PO BID #14 tab 07/13/20 [Rx] Gabapentin [Neurontin] 100 mg PO BID #14 cap 07/13/20 [Rx] Multivitamins, Thera [Multivitamin (formulary)] 1 each PO DAILY@1200 tab 07/13/20 [Rx] Nicotine 14Mg/24Hr Patch [Habitrol] 1 patch TRANSDERM DAILY #7 patch 07/13/20 [Rx] Thiamine [Vitamin B-1] 100 mg PO BID-W/MEALS tab 07/13/20 [Rx] Vancomycin 1,000 mg IVPB Q12H #14 vial 07/13/20 [Rx] metroNIDAZOLE [Flagyl] 500 mg PO TID #21 tab 07/13/20 [Rx] Follow up Appointment(s)/Referral(s): Sammy Garrido MD [Primary Care Provider] - 07/12/20 11:00 am Darci Cam DO [Doctor of Osteopathic Medicine] - 07/19/20 8:15 am (wound care clinic) Activity/Diet/Wound Care/Special Instructions: Cleanse wound with half strength peroxide, saline irrigation and wrap with kerlix daily. Per Dr. Costello - patient will go on outpatient IV Vancomycin with pharmacy to dose for 5 weeks Discharge Disposition: TRANSFER TO SNF/ECF
[2020-07-13 11:23] LABS: African American GFR (CKD) 82.4 (60.0-200.0); Albumin/Globulin Ratio 1.25 (1.60-3.17); Anion Gap 6.1 mmol/L (4.00-12.00); BUN/Creat Ratio 9.09 Ratio (12.00-20.00); Calcium 8.8 mg/dL (8.7-10.3); Carbon Dioxide 26.9 mmol/L (21.6-31.8); Globulin 2.4 g/dL (1.6-3.3); Non-African American GFR(CKD) 71.1 (60.0-200.0); Potassium 4.8 mmol/L (3.5-5.5); Total Bilirubin 0.2 mg/dL (0.2-1.2); Total Protein 5.4 g/dL (6.2-8.2)
--- NOTE | 2020-07-16 15:46 | CDI ---
Documentation Clarification Form Date: 07/16/20 From: Joann Camejo CCS Phone: If you have a question about this query, please contact Urszula Weaver, Carpenter P[employer] at [phone] between 8am and 5pm. Admit Date: 07/03/20 Discharge Date:07/13/20 Patient Name: Rudolph Art Visit Number: [id number] ATTENTION: The Clinical Documentation Specialists (CDI) and [facility] Coding Staff appreciate your assistance in clarifying documentation. Please respond to the clarification below the line at the bottom and electronically sign. The CDI & [facility] Coding staff will review the response and follow-up if needed. Please note: Queries are made part of the Legal Health Record. If you have any questions, please contact the author of this message via ITS. Dear Dr. Garrido, Conflicting documentation has been found in the medical record: Sepsis is documented in the H&P, PNs, Consult: Acute right diabetic foot ulcer infection with possible osteomyelitis and sepsis with methicillin-resistant Staphylococcus aeruginosa and Gram-negative bacilli Bacteremia is documented in the Consult, PNs, DS: Patient with methicillin- resistant Staphylococcus aeruginosa bacteremia secondary to her right diabetic foot infection with underlying osteomyelitis. History/Risk Factors: Diabetic foot infection with osteomyelitis, ATN, CHF, HTN Clinical Indicators: Tachycardia, Elevated WBC, Acidosis Labs: WBC 23.1, 17.8, 17.4, Lactic Acid 2.3 Vitals: BP 91/61, RR 18, MS 114, Temp 99.8, O2 Sat 99 Blood Culture: MRSA Treatment: Unasyn 3 gm IVPB Q6HR, Zosyn 3.375 gm IVPB, Vancomycin 1,250 mg IVPB Other: Debridement, PICC line In your opinion, what is the most clinically appropriate diagnosis for this patient? Sepsis Bacteremia Other explanation of clinical findings Unable to determine (no explanation for clinical findings) Bacteremia MTDD
--- NOTE | 2020-08-02 09:30 | CDI ---
Documentation Clarification Form Date: 08/02/20 From: Joann Camejo CCS Phone: If you have a question about this query, please contact Urszula Weaver, Face Painter at [phone] between 8am and 5pm. Admit Date: 07/03/20 Discharge Date:07/13/20 Patient Name: Rudolph Art Visit Number: [id number] ATTENTION: The Clinical Documentation Specialists (CDI) and [facility] Coding appreciate your assistance in clarifying documentation. Please respond to the clarification below the line at the bottom and electronically sign. The CDI & [facility] Coding staff will review the response and follow-up if needed. Please note: Queries are made part of the Legal Health Record. If you have any questions, please contact the author of this message via ITS. Dear Dr. Cam, Documentation in the Operative Report included: There was some tissue between the first and second MP joints.On probing all areas we found a tract with purulence going down between the bodies of the first and second metatarsals.We opened up the skin over this and then probed these areas digitally.We found the surrounding tissue to seem to be intact.We removed all further nonviable soft tissue.We did leave periosteum intact over the first proximal phalanx and the metatarsal.There was no open involvement of the internal aspects of the first MP joint.Our initial measurement was about 2.5 x 2.5 cm x 0.4 cm's in depth.At the end of our debridement the entire opening was about 10 x 5 cm and the depths into the foot was about 5 cm. We did expose periosteum and subcutaneous tissue and the deep compartment of the foot. History/Risk factors: Diabetic foot infection with ulcer, Osteomyelitis, CHF, ATN, Alcohol abuse, HTN, Tobacco Pre-Operative Diagnosis: Diabetic infection right foot involving deep structures Postoperative Diagnosis: Diabetic infection right foot involving deep structures Clinical Indicators: Cellulitis, Foot infection, Osteomyelitis Treatment: Debridement, Unasyn 3 gm IVPB, Cleocin 600 mg IVPB, Zosyn 3.375 gm IVPB, Vancomycin 1,250 mg IVPB In order to capture the severity of condition, please specify the following: Clarify soft tissue removed by excisional debridement Muscle Tendons Subcutaneous tissue Fascia In our debridement we removed skin and subcutaneous tissue. There was muscle involvement without necrosis. MTDD
== END 2020-07-13 11:58 | DRG 622 ==
LOC: EC 12:54 → 4SSUR 14:51
PROVIDERS: ADMIT Family Medicine; ATTEND Family Medicine
PROC: 0JBQ0ZZ Excision of Right Foot Subcutaneous Tissue and Fascia, Open Approach (ICD-10-PCS; principal; 2020-07-06 13:30)
PROC: 02HV33Z Insertion of Infusion Device into Superior Vena Cava, Percutaneous Approach (ICD-10-PCS; 2020-07-09)
DX: E11.69 Type 2 diabetes mellitus with other specified complication (principal); I50.33 Acute on chronic diastolic (congestive) heart failure; F10.231 Alcohol dependence with withdrawal delirium; E87.2 Acidosis; E87.1 Hypo-osmolality and hyponatremia; L97.516 Non-pressure chronic ulcer of other part of right foot with bone involvement without evidence of necrosis; M86.171 Other acute osteomyelitis, right ankle and foot; R78.81 Bacteremia; N17.0 Acute kidney failure with tubular necrosis; E83.51 Hypocalcemia; E11.628 Type 2 diabetes mellitus with other skin complications; E11.621 Type 2 diabetes mellitus with foot ulcer; E11.42 Type 2 diabetes mellitus with diabetic polyneuropathy; J84.10 Pulmonary fibrosis, unspecified; I11.0 Hypertensive heart disease with heart failure; E11.65 Type 2 diabetes mellitus with hyperglycemia; Z79.4 Long term (current) use of insulin; D53.9 Nutritional anemia, unspecified; F17.200 Nicotine dependence, unspecified, uncomplicated; R79.82 Elevated C-reactive protein (CRP); B95.62 Methicillin resistant Staphylococcus aureus infection as the cause of diseases classified elsewhere; L97.529 Non-pressure chronic ulcer of other part of left foot with unspecified severity; E87.5 Hyperkalemia; E78.5 Hyperlipidemia, unspecified; L08.9 Local infection of the skin and subcutaneous tissue, unspecified; T44.5X5A Adverse effect of predominantly beta-adrenoreceptor agonists, initial encounter; W19.XXXA Unspecified fall, initial encounter; Z71.3 Dietary counseling and surveillance; Z79.899 Other long term (current) drug therapy; Z86.14 Personal history of Methicillin resistant Staphylococcus aureus infection; Z82.0 Family history of epilepsy and other diseases of the nervous system; Z80.1 Family history of malignant neoplasm of trachea, bronchus and lung
CPT/HCPCS: 36415; 36573; 71045; 71046; 71250; 78315; 80048; 80053; 80202; 83036; 83605; 83880; 85025; 85027; 85610; 85652; 85730; 86140; 87040; 87070; 87075; 87077; 87186; 87205; 93306; 96365; 96366; 96367; 96372; 99285